=== PATIENT | female | born 1980 | race Caucasian/White ===

== ENCOUNTER 2021-03-11 16:59 | Inpatient (IN) | payer OTHER ==
[~2021-03-11] VITALS: Ht 167.6 cm; Wt 114.3 kg
[2021-03-11] MEDS ORDERED: NS 1,000 ML IV ONE ×2 (17:30→20:45)
[2021-03-11 18:23] LABS: BASO % 0.2 % (0.0-1.0); EOS % 0.1 % (0.0-3.0); HEMATOCRIT 43.3 % (36.0-47.0); HEMOGLOBIN 14.2 g/dl (12.0-15.5); LYMPH # 0.7 10^3/uL (1.5-5.0); LYMPH % 3.7 % (24.0-44.0); MEAN CORPUSCULAR HEMOGLOBIN 22.5 pg (27.0-33.0); MEAN CORPUSCULAR HGB CONC 32.8 g/dl (32.0-36.5); MEAN CORPUSCULAR VOLUME 68.6 fl (80.0-96.0); MONO # 1.9 10^3/uL (0.0-0.8); NEUTROPHILS % 84.7 % (36.0-66.0); PLATELET COUNT, AUTOMATED 503 10^3/uL (150-450); RED BLOOD COUNT 6.31 10^6/uL (4.00-5.40)
[2021-03-11 18:46] LABS: WHITE BLOOD COUNT 18.9 10^3/uL (4.0-10.0)
[2021-03-11 18:52] LABS: CALCIUM LEVEL 9.3 MG/DL (8.5-10.1); CREATININE FOR GFR 6.72 MG/DL (0.55-1.30); GLOMERULAR FILTRATION RATE 7.2 (>58)
[2021-03-11] MEDS ORDERED: KCL 10MEQ/100ML SWI (KRUN) 10 MEQ in IV 1 EA IV ONE ×5 (19:00→19:05)
[2021-03-11] MEDS ORDERED: POTASSIUM CHLORIDE 10 MEQ SR TABLET PO ONE (19:05)
--- NOTE | 2021-03-11 19:30 | REP ---
INDICATION: consern for sepsis of unknown source COMPARISON: None. TECHNIQUE: Portable AP view of the chest FINDINGS: The mediastinum and cardiac silhouette are within normal limits for portable technique. The lung ochoa are clear without acute consolidation, effusion, or pneumothorax. Skeletal structures are intact. IMPRESSION: No acute cardiopulmonary process appreciated. <Electronically signed by Alfonzo Fabian > 03/11/21 [id number]
[2021-03-11] MEDS ORDERED: PROAAER10 INH (20:23)
[2021-03-11 20:27] LABS: RSV AMPLIFICATION NEGATIVE (NEGATIVE)
--- NOTE | 2021-03-11 23:19 | REPVR ---
PROCEDURE INFORMATION: Exam: CT Head Without Contrast Exam date and time: 03/11/2021 10:41 PM Age: 40 years old Clinical indication: Injury or trauma; Fall; Blunt trauma (contusions or hematomas) TECHNIQUE: Imaging protocol: Computed tomography of the head without contrast. Radiation optimization: All CT scans at this facility use at least one of these dose optimization techniques: automated exposure control; mA and/or kV adjustment per patient size (includes targeted exams where dose is matched to clinical indication); or iterative reconstruction. COMPARISON: No relevant prior studies available. FINDINGS: Brain: There is no CT evidence for an acute large vessel territorial infarct. No acute intracranial hemorrhage is seen. No mass, mass effect, midline shift, or herniation is noted. Cerebral ventricles: Normal for age. No hydrocephalus. Paranasal sinuses: The imaged portions of the sinuses are well aerated. No air-fluid levels are noted in the sinuses. Mastoid air cells: The mastoid air cells are well aerated. Bones/joints: The skull is intact. No suspicious osteolytic or osteoblastic lesion. Soft tissues: Unremarkable. No soft tissue fluid collection. IMPRESSION: No acute intracranial abnormality. Electronically signed by: Daniel Foss On 03/11/2021 23:19:37 PM
[2021-03-11] MEDS ORDERED: ONDANSETRON 4MG/2ML VIAL IV ONE (23:40)
--- NOTE | 2021-03-12 01:40 | REPVR ---
PROCEDURE INFORMATION: Exam: CT Abdomen And Pelvis Without Contrast Exam date and time: 03/12/2021 12:59 AM Age: 40 years old Clinical indication: Sepsis, R/O pelvic infection TECHNIQUE: Imaging protocol: Computed tomography of the abdomen and pelvis without contrast. Radiation optimization: All CT scans at this facility use at least one of these dose optimization techniques: automated exposure control; mA and/or kV adjustment per patient size (includes targeted exams where dose is matched to clinical indication); or iterative reconstruction. COMPARISON: CR PORTABLE CHEST X-RAY 03/11/2021 7:00 PM FINDINGS: Lungs: The imaged portions of the lung bases are clear. The lungs were not fully imaged. Heart: No cardiomegaly. There is a trace amount of fluid in the pericardial sac. Diaphragm: Intact. Liver: Unremarkable. No liver lesion is identified. The contour of the liver is smooth. No hepatomegaly is noted. Gallbladder and bile ducts: There is a fluid fluid level in the gallbladder with higher attenuation material layering in the dependent portion of the gallbladder, which may represent biliary sludge. No gallbladder wall thickening, pericholecystic fluid, or inflammatory fat stranding is noted around the gallbladder. No dilation of the bile ducts is noted. No calcified stones are seen in the common bile duct. Pancreas: Unremarkable. No dilation of the main pancreatic duct is noted. Spleen: Unremarkable. No splenomegaly is noted. Adrenal glands: Normal. No adrenal mass is noted. Kidneys and ureters: No stones are noted in the kidneys or ureters. There is no hydronephrosis or hydroureter. The kidneys are unremarkable. No renal lesion is noted. Stomach and bowel: There is no evidence for a bowel obstruction, strangulation, perforated viscus, pneumatosis intestinalis, intussusception, or volvulus. There is submucosal fat deposition in the wall of the cecum and ascending colon, which may be the sequela of a prior colitis or may be related to obesity. No pericolonic inflammatory fat stranding is noted. There is colonic diverticulosis without evidence for diverticulitis. Appendix: Normal. No evidence for appendicitis. Intraperitoneal space: No free air. No ascites. No abscess. Retroperitoneal space: No fluid collection. No mass. Vasculature: The abdominal aorta is normal in caliber. Lymph nodes: No enlarged lymph nodes. Urinary bladder: The distended urinary bladder is normal in appearance. No stones or masses are seen in the bladder. Reproductive: There is a 2.7 cm subserosal fibroid arising from the fundus of uterus and a 5.1 cm subserosal fibroid arising from the the posterior aspect of body of the anteverted uterus. The ovaries are unremarkable. No tubo-ovarian abscess is noted. Bones/joints: There is no acute fracture or dislocation. There is an old healed fracture deformity involving the right posterior 11th rib. The ribs were not fully imaged. 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 Soft tissues: There is a large midline ventral hernia located just above the umbilicus, which contains a portion of the mid transverse colon and loops of small bowel. IMPRESSION: 1. Large midline ventral hernia located just above the umbilicus, which contains a portion of the mid transverse colon and loops of small bowel. No bowel strangulation or obstruction. 2. Submucosal fat deposition in the wall of the cecum and ascending colon, which may be the sequela of a prior colitis or may be related to obesity. 3. Colonic diverticulosis without evidence for diverticulitis. 4. Fluid fluid level in the gallbladder with higher attenuation material layering in the dependent portion of the gallbladder, which may represent biliary sludge. 5. Fibroid uterus. 6. No abscess in the abdomen or pelvis. Electronically signed by: Daniel Foss On 03/12/2021 01:39:53 AM
[2021-03-12] MEDS ORDERED: MOM 30ML SUSPENSION UDC PO PRN (01:45)
[2021-03-12] MEDS ORDERED: ACETAMINOPHEN TAB 650MG DOSE (2X325MG) PO PRN (01:45)
[2021-03-12] MEDS ORDERED: MAALOX 30 ML SUSP *UDC PO PRN (01:45)
[2021-03-12] MEDS ORDERED: NS 1,000 ML IV ONE ×2 (01:45→02:00)
--- NOTE | 2021-03-12 01:59 | HPEPDOC ---
[facility] Medical History & Physical Date of Admission Mar 12, 2021 Date of Service: Mar 12, 2021 History and Physical CHIEF COMPLAINT: Syncope HISTORY OF PRESENT ILLNESS: 39-year-old female that reports no prior medical history was brought to ER by EMS after neighbors had called one for a witnessed syncopal episode. Patient states that she was walking down the street and felt slightly lightheaded and then loss consciousness and subsequently fell onto the ground. She states she was aroused by her neighbors and does not recall tongue biting, urinary or bowel incontinence. The patient is a very poor historian and I suspect has a degree of intellectual disability. She states that she lives alone and has no prior medical history. Unfortunately, patient has not been a prior patient of [facility] and therefore no additional medical records are available. She denies any chest pain, palpitations, nausea, vomiting, diarrhea, shortness of breath, headache, blurred vision. She found to have several concerning labs. She was found to have a white count of 18.9, with 84.7% neutrophil predominance. She was also found to have severe hypokalemia with a potassium of 2.0 as well as acute renal failure with a creatinine of 6.72 and a BUN of 54. She is found to have an elevated anion gap of 22, lactic acid of 4.0. ABG showed a pH of 7.50 with a PO2 of 103, PCO2 of 26.5. CT of the head without contrast showed no hemorrhage or signs of ischemic stroke. Chest x-ray showed no acute pulmonary process. Noncontrast abdomen and pelvis showed findings consistent with a non-strangulated ventral hernia, diverticulosis, biliary sludge without additional acute findings. Dr. Shields was consulted from the ER, recommended IV hydration, and no emergent dialysis. Patient will be admitted to hospital service for workup of sepsis, acute renal failure and syncope. PAST MEDICAL HISTORY: Patient self reports is no past medical history Suspected intellectual disability PAST SURGICAL HISTORY: Patient reports none SOCIAL HISTORY: Patient denies smoking Patient denies etoh use Patient denies illicit drug use FAMILY HISTORY: Review patient, provided no pertinent family history ALLERGIES: Please see below. REVIEW OF SYSTEMS: 10 point ROS conducted, relevant findings are noted in HPI HOME MEDICATIONS: Please see below. PHYSICAL EXAMINATION: VITAL SIGNS: please see below General: NAD, comfortable HEENT: PERRLA, EOMI, sclerae clear Neck: supple, normal ROM, no JVD Respiratory: lungs CTAB, no wheeze, no rales, no crackles CVS: RRR, normal S1, S2, no murmurs Abdo: Large midline ventral hernia located above the umbilicus. Umbilicus contains mucopurulent discharge and surrounding area of skin maceration. Perineal exam: Performed with ER development architect. Patient has streams of dried blood on her legs. Perineal examination showed severe skin maceration suggestive of intertrigo/fungal infection as well as mucopurulent discharge in the skin folds between the pannus and the hip folds. Exam was limited due to patient's pain and discomfort. Extremities: no edema, pulses 2+ MSK: no joint deformities, normal ROM Neuro: no focal neuro deficits, moving all 4 extremities, CN2-12 intact. Strength 5/5 in all 4 extremities. No nystagmus. Psych: calm, cooperative, AAO x 3 LABORATORY DATA: See below. IMAGING: CT abdomen pelvis wo contrast (03/12/21): IMPRESSION: 1. Large midline ventral hernia located just above the umbilicus, which contains a portion of the mid transverse colon and loops of small bowel. No bowel strangulation or obstruction. 2. Submucosal fat deposition in the wall of the cecum and ascending colon, which may be the sequela of a prior colitis or may be related to obesity. 3. Colonic diverticulosis without evidence for diverticulitis. 4. Fluid fluid level in the gallbladder with higher attenuation material layering in the dependent portion of the gallbladder, which may represent biliary sludge. 5. Fibroid uterus. 6. No abscess in the abdomen or pelvis. CXR (03/11/21): No acute cardiopulmonary process appreciated CT head wo contrast (03/11/21): No acute intracranial abnormality. MICROBIOLOGY: Please see below. ASSESSMENT: 40-year-old female with suspected mitral disability from a neighbors after syncopal episode. On arrival to the ER, found to have sepsis, acute renal failure, severe hyperkalemia and acute renal failure. CT imaging of the head, abdomen and pelvis showed no acute abnormality. PLAN: Sepsis secondary to unknown source - WBC 18.9. Tachycardi. T 100.2. LA 4.0 - s/p 2L NS bolus. Blood cultures sent - started on empiric vancomycin and cefepime, with renal dosage - patient denies neck pain, chest pain, cough, dysuria - noted to have streaks of dried blood on legs - perineal exam showed extensive skin maceration with erythema, mucopurulent DC in folds of skin between torso and thigh, as well as satellite lesions - suspect cellulitis as possible source - CT abdo pelvis showed no pelvic abscess - patient did not spontaneously void, I ordered keys to be placed to monitor UOP. 300 cc of yann urine drained. - UA sent. Poisitive for blood, WBC, RBC, 3+ protein. Negative for LE and nitrite - urine culture sent. Acute renal failure - patient denies reduced PO intake - Cr 6.57, in ER. - was given endorsement that patient has been making urine - per RN, no UOP has been made - ordered keys catheter to be placed - ordered renal US - check urine lytes - check CPK - D/w Dr. Shields. C/w IVF. No need for urgent dialysis. Consult placed. Cellulitis with intertrigo - started empiric vancomycin and cefepime - topical ketoconazole cream - diflucan once time dose 150 mg PO Questionable vaginal bleeding - patient reported possible intermenstrual bleeding - will order complete pelvic US Syncope - check orthosats - admit to PCU, 48 hr telemetry - check carotid US Obesity - BMI 33.4. DVT: SCDs. TEDs. Heparin. CODE STATUS: full code Dispo: admit to PCU. Vital Signs Vital Signs Date Time Temp Pulse Resp B/P (MAP) Pulse Ox O2 Delivery O2 Flow Rate FiO2 03/12/21 01:30 91 16 152/90 (110) 100 Room Air 03/11/21 17:05 100.2 Laboratory Data Labs 24H Laboratory Tests 2 03/11/21 18:02: Immature Granulocyte % (Auto) 1.3, Neutrophils (%) (Auto) 84.7H, Lymphocytes (%) (Auto) 3.7L, Monocytes (%) (Auto) 10.0H, Eosinophils (%) (Auto) 0.1, Basophils (%) (Auto) 0.2, Neutrophils # (Auto) 16.0H, Lymphocytes # (Auto) 0.7L, Monocytes # (Auto) 1.9H, Eosinophils # (Auto) 0.0, Basophils # (Auto) 0.0, Nucleated Red Blood Cells % (auto) 0.1H, Anion Gap 22H, Glomerular Filtration Rate 7.2L, Calcium Level 9.3 03/11/21 19:07: Lactic Acid Level 4.0*H, Coronavirus (COVID-19)(PCR) NEGATIVE, Influenza Type A (RT-PCR) NEGATIVE, Influenza Type B (RT-PCR) NEGATIVE, Respiratory Syncytial Virus (PCR) NEGATIVE 03/11/21 21:13: POC pH (Misc Panel) 7.503H, POC Base Excess (Misc Panel) -2.0, POC Saturated Percent O2 (Misc) 99H, POC pO2 (Misc Panel) 103.0, POC pCO2 (Misc Panel) 26.5L, POC HCO3 (Misc Panel) 20.8L, POC Total CO2 (Misc Panel) 22.0L 03/11/21 23:10: Lactic Acid Followup at 4 Hours 3.0*H CBC/BMP Laboratory Tests 03/11/21 18:02 Microbiology Microbiology 03/11/21 Blood Culture, Received Pending Home Medications Scheduled PRN Albuterol Sulfate (Proair Hfa) 8.5 Gm Hfa.aer.ad, 2 PUFF INH Q4H PRN for SOB/WHEEZING Allergies Coded Allergies: No Known Allergies (Unverified , 03/11/21) A-FIB/CHADSVASC A-FIB History Current/History of A-Fib/PAF?: No Current PO Anticoag Therapy: No BERT GRANT MD Mar 12, 2021 01:59
[2021-03-12 02:12] LABS: BLOOD UREA NITROGEN 55 MG/DL (7-18); CALCIUM LEVEL 8.1 MG/DL (8.5-10.1); CARBON DIOXIDE LEVEL 21 MEQ/L (21-32); CHLORIDE LEVEL 100 MEQ/L (98-107); CREATININE FOR GFR 5.76 MG/DL (0.55-1.30); GLOMERULAR FILTRATION RATE 8.6 (>58); GLUCOSE, FASTING 147 MG/DL (70-100); POTASSIUM SERUM 2.1 MEQ/L (3.5-5.1); SODIUM LEVEL 137 MEQ/L (136-145)
[2021-03-12] MEDS ORDERED: POTASSIUM CHLORIDE 10 MEQ SR TABLET PO ONE ×4 (02:25→22:35)
[2021-03-12] MEDS ORDERED: VANCOMYCIN INTERMITTENT/PULSE DOSING BY CLINICAL PHARMACIST PER DOSING PROTOCOL XX SCH (02:35)
[2021-03-12 02:52] LABS: HCG, SERUM QUALITATIVE NEGATIVE (NEGATIVE)
[2021-03-12] MEDS ORDERED: CEFEPIME HCL 1 GM in D5W MINI-BAG PLUS 50 ML IV SCH ×2 (03:00→04:55)
[2021-03-12 03:12] LABS: CPK CREATINE PHOSPHOKINASE 276 U/L (26-192)
[2021-03-12 04:02] VITALS: BP 138/94
[2021-03-12] MEDS: KCL 10MEQ/100ML SWI (KRUN) 10 MEQ in IV 1 EA IV SCH ×12 (04:07→23:53)
[2021-03-12 05:02] LABS: SODIUM,RANDOM URINE < 10 MEQ/L
[2021-03-12] MEDS ORDERED: FLUCONAZOLE 100 MG TAB PO ONE (05:10)
[2021-03-12] MEDS ORDERED: ALBUTEROL 90 MCG/ACT 8GM HFA INHALER INH PRN (05:15)
[2021-03-12] MEDS ORDERED: FLUCONAZOLE 50MG TABLET PO ONE (05:20)
[2021-03-12] MEDS: HEPARIN SOD (PORCINE) 5000UNITS/ML 1ML VIAL/SYRINGE SC SCH ×3 (06:14→21:16)
[2021-03-12] MEDS: VANCOMYCIN HCL 1,000 MG, VIAL MATE ADAPTER 1 EACH in NS 250 ML IV SCH ×2 (06:14→08:15)
[2021-03-12 06:30] LABS: BASO % 0.1 % (0.0-1.0); EOS % 0.2 % (0.0-3.0); HEMATOCRIT 39.9 % (36.0-47.0); HEMOGLOBIN 12.7 g/dl (12.0-15.5); LYMPH # 0.8 10^3/uL (1.5-5.0); LYMPH % 5.4 % (24.0-44.0); MEAN CORPUSCULAR HEMOGLOBIN 22.6 pg (27.0-33.0); MEAN CORPUSCULAR HGB CONC 31.8 g/dl (32.0-36.5); MEAN CORPUSCULAR VOLUME 71.1 fl (80.0-96.0); MONO # 1.6 10^3/uL (0.0-0.8); MONO % 10.8 % (2.0-8.0); NEUTROPHILS # 12.5 10^3/uL (1.5-8.5); RED BLOOD COUNT 5.61 10^6/uL (4.00-5.40)
[2021-03-12] MEDS: TRIPLE PASTE 2OZ OINTMENT TOP SCH ×2 (06:42→20:26)
[2021-03-12] MEDS: KETOCONAZOLE 2% CREAM TOP SCH ×2 (06:49→20:26)
[2021-03-12 06:50] LABS: PLATELET COUNT, AUTOMATED 307 10^3/uL (150-450); WHITE BLOOD COUNT 15.3 10^3/uL (4.0-10.0)
[2021-03-12 07:01] LABS: ALBUMIN 3.2 GM/DL (3.2-5.2); BILIRUBIN,TOTAL 1.4 MG/DL (0.2-1.0); CALCIUM LEVEL 8.1 MG/DL (8.5-10.1); CREATININE FOR GFR 5.04 MG/DL (0.55-1.30); GLOMERULAR FILTRATION RATE 10.1 (>58); POTASSIUM SERUM 2.2 MEQ/L (3.5-5.1); TOTAL PROTEIN 7.1 GM/DL (6.4-8.2)
--- NOTE | 2021-03-12 07:57 | REPVR ---
PROCEDURE INFORMATION: Exam: US Duplex Bilateral Extracranial Arteries Exam date and time: 03/12/2021 6:02 AM Age: 40 years old Clinical indication: Syncope and collapse TECHNIQUE: Imaging protocol: Real-time Duplex ultrasound scan of the bilateral carotid and vertebral arteries combining malloy scale, color Doppler and spectral waveform analysis. Bilateral exam. COMPARISON: None provided. FINDINGS: There is mild plaque involving the carotid bifurcations bilaterally. Vertebral artery flow is antegrade bilaterally. The following peak velocities were obtained (Systolic (Diastolic) in cm/sec) Right CCA: 86 Right ICA: Proximal 72 (18), Mid 55 (18), Distal 49 (18) Right ECA: 104 Left CCA: 110 Left ICA: Proximal 53 (16), Mid 84 (33), Distal 113 (51) Left ECA: 72 Peak ICA/CCA ratios: Right: 0.83 Left: 1.03 IMPRESSION: 1. There is mild plaque with Doppler evidence of less than 50% carotid artery stenosis on the right. This is on the basis of peak internal carotid artery systolic velocity and peak ICA/CCA systolic velocity ratio. 2. There is mild plaque with Doppler evidence of less than 50% carotid artery stenosis on the left. This is on the basis of peak internal carotid artery systolic velocity and peak ICA/CCA systolic velocity ratio. 3. Antegrade vertebral artery flow bilaterally. REFERENCES: SRU CRITERIA. The degree of internal carotid artery stenosis is based on criteria defined by the Society of Radiologists in Ultrasound (SRU). Normal is no stenosis. Mild is less than 50% stenosis. Moderate is 50-69% stenosis. Severe is greater than 69% stenosis to near occlusion. Near occlusion is a markedly narrowed lumen. Total occlusion is no detectable patent lumen. Electronically signed by: Jorge Padilla On 03/12/2021 07:56:50 AM
--- NOTE | 2021-03-12 07:59 | REPVR ---
PROCEDURE INFORMATION: Exam: US Retroperitoneal Limited, Kidneys Exam date and time: 03/12/2021 6:02 AM Age: 40 years old Clinical indication: Abnormal findings; Abnormal lab test; Abnormal kidney function lab tests; Additional info: Acute renal failure TECHNIQUE: Imaging protocol: Real-time ultrasound of the retroperitoneum with image documentation. Examination was focused on the kidneys. COMPARISON: CT ABD PELVIS W/O CONTRAST 03/12/2021 12:59 AM FINDINGS: Right kidney: The right kidney measures 13.1 x 5.8 x 5.7 cm. It appears echogenic and is without hydronephrosis or demonstrated stone, cyst or mass. Left kidney: The left kidney measures 12.7 x 5.6 x 6.5 cm. It appears echogenic and is without hydronephrosis or demonstrated stone, cyst or mass. IMPRESSION: Echogenic kidneys, suggesting chronic medical renal disease, without other demonstrated abnormality. Electronically signed by: Jorge Padilla On 03/12/2021 07:58:53 AM
[2021-03-12 08:00] VITALS: BP 140/78
--- NOTE | 2021-03-12 08:04 | REPVR ---
PROCEDURE INFORMATION: Exam: US Pelvis Complete, Transabdominal and US Pelvis, Transvaginal Exam date and time: 03/12/2021 6:02 AM Age: 40 years old Clinical indication: Menstruation abnormalities; Irregular menstruation; Additional info: Intermenstrual bleeding TECHNIQUE: Imaging protocol: Real-time transabdominal and transvaginal pelvic ultrasound (complete) with image documentation. Transvaginal imaging was used for better evaluation of the endometrium, adnexa, and/or cervix. COMPARISON: CT ABD PELVIS W/O CONTRAST 03/12/2021 12:59 AM FINDINGS: Uterus/cervix: The uterus measures 9.3 x 4.6 x 5.5 cm transabdominally and 5.2 x 4.6 x 4.8 cm transvaginally. Along its right aspect is a subserosal fibroid measuring 5.0 x 4.5 x 4.2 cm. The endometrium measures 1.2-1.4 cm in thickness transvaginally. Within the endometrium is an echogenic lesion measuring 1.4 x 1.4 x 1.2 cm with internal vascularity, likely a polyp. Right adnexa: The right ovary measures 3.6 x 2.9 x 2.0 cm as seen transvaginally only, and appears unremarkable. There is internal flow with resistive index 0.63. Left adnexa: The left ovary measures 2.3 x 1.4 x 1.9 cm as seen transvaginally only, and appears unremarkable. There is internal flow with resistive index 0.41. Intraperitoneal space: No demonstrated free fluid. Urinary bladder: Unremarkable as visualized. IMPRESSION: 1. 1.4 cm vascular lesion along the endometrium, likely polyp. Recommend further gynecologic evaluation. 2. 5.0 cm subserosal uterine fibroid. 3. Unremarkable ovaries. Electronically signed by: Jorge Padilla On 03/12/2021 08:04:05 AM
[2021-03-12] MEDS: DOCUSATE SODIUM 100MG CAPSULE PO SCH ×2 (08:15→20:25)
[2021-03-12] MEDS ORDERED: NS 1,000 ML IV SCH (08:55)
[2021-03-12] MEDS: POTASSIUM CHLORIDE 10 MEQ SR TABLET PO SCH ×2 (09:22→20:25)
[2021-03-12 10:05] LABS: VENOUS BASE EXCESS -4.8 (-2.0-2.0); VENOUS HCO3 14.8 MEQ/L (23.0-27.0); VENOUS O2 SATURATION 99.4 % (60.0-80.0); VENOUS PARTIAL PRESSURE CO2 16.9 mmHg (38.0-50.0); VENOUS PARTIAL PRESSURE O2 200.6 mmHg (30.0-50.0); VENOUS PH 7.561 UNITS (7.330-7.430); VENOUS STANDARD HCO3 20.6 MEQ/L; VENOUS TOTAL CO2 15.3 MEQ/L (24.0-28.0)
[2021-03-12] MEDS ORDERED: PIPERACILLIN/TAZOBACTAM SOD 3.375 GM in D5W MINI-BAG PLUS 50 ML IV SCH (10:10)
--- NOTE | 2021-03-12 10:11 | IPNPDOC ---
Text Note Date of Service The patient was seen on 03/12/21. NOTE Subjective: Patient is a 39 year old female with no significant PMHx who presented to the ER on 03/11 via EMS after her neighbor's witnessed a syncopal episode. . She reported that she was walking down the street and felt lightheaded and lost consciousness. There is no urinary or bowel incontinence. No seizure-like activity. Patient was brought to the emergency room and was admitted to the hospitalist service for further evaluation and treatment. Upon arrival to emergency room, patient had significant acute kidney injury, metabolic acidosis, lactic acidosis and hypokalemia. Nephrology was called on consultation. Patient was seen and examined at the bedside. Currently patient reports that she feels a little better. She denies any CP or palpitations. Patient reported that she has experienced some nausea, vomiting, and a mild cough. She denies any abdominal pain, diarrhea, or urinary discomfort. Objective: Vitals (See below) General: Lying in bed, appears comfortable, AAOx3 HEENT: NC, AT CVS: +S1S2 Lungs: Fair air entry b/l, no appreciable wheezing, rales or rhonchi Abdomen: Soft, ND, NT Extremities: No evidence of edema, - Calf tenderness Imaging: Portable CXR 03/11: No acute cardiopulmonary process appreciated. Head CT 03/11: No acute intracranial abnormality. Abdomen / Pelvis CT 03/11: 1. Large midline ventral hernia located just above the umbilicus, which contains a portion of the mid transverse colon and loops of small bowel. No bowel strangulation or obstruction. 2. Submucosal fat deposition in the wall of the cecum and ascending colon, which may be the sequela of a prior colitis or may be related to obesity. 3. Colonic diverticulosis without evidence for diverticulitis. 4. Fluid fluid level in the gallbladder with higher attenuation material layering in the dependent portion of the gallbladder, which may represent biliary sludge. 5. Fibroid uterus. 6. No abscess in the abdomen or pelvis. Renal US 03/12 Echogenic kidneys, suggesting chronic medical renal disease, without other demonstrated abnormality. Vascular US 03/12: 1. There is mild plaque with Doppler evidence of less than 50% carotid artery stenosis on the right. This is on the basis of peak internal carotid artery systolic velocity and peak ICA/CCA systolic velocity ratio. 2. There is mild plaque with Doppler evidence of less than 50% carotid artery stenosis on the left. This is on the basis of peak internal carotid artery systolic velocity and peak ICA/CCA systolic velocity ratio. 3. Antegrade vertebral artery flow bilaterally. Pelvic US 03/12: 1. 1.4 cm vascular lesion along the endometrium, likely polyp. Recommend further gynecologic evaluation. 2. 5.0 cm subserosal uterine fibroid. 3. Unremarkable ovaries. Assessment and plan: Acute renal failure - No baseline Cr to compare against - Cr has been improving - FENA of 0.1% - Imaging noted above - Barton catheter has been placed - c/w IV fluid hydration - Nephrology has been consulted; appreciate their input Hypokalemia - Will continue to supplement Metabolic acidosis - likely 2/2 HAGMA and NAGMA - possibly 2/2 Lactic acidosis / Acute renal failure - Delta / Delta of ~0.8 - Lactic acid has had some improvement; will continue to trend - c/w IV fluid hydration - Nephrology on consultation Hyperglycemia - Will check A1c s/p Thrombocytosis - likely 2/2 reactive etiology - Will check Iron panel Suspected infection - etiology unclear, suspicion for SSTI - Review of systems negative for any source of infection - Hemodynamically stable and afebrile - SSTI infection around perineum / flank - MRSA positive - Blood cultures 03/11: Pending - UA is without LE / Nitrates; Urine cultures 03/12: Pending - s/p Fluconazole 150mg PO x 1 dose - Will check procalcitonin - c/w Topical ketoconazole cream - c/w Vancomycin and Cefepime (Day #1); will change Cefepime to Zosyn (re: Anaerobic coverage) Cellulitis with intertrigo - See above Questionable vaginal bleeding - possibly 2/2 vascular lesion along endometrium / subserosal uterine fibroid - Pelvic US noted above - Will consult COMBINE MECHANIC Syncope - possibly 2/2 dehydration / hypovolemia - BP have improved - Tachycardia has improved - Will check orthostatic vital signs - ECHO pending - c/w Telemetry Obesity - BMI 36.8 - Complicating medical care DVT prophylaxis - c/w TEDs/Sequentials + Heparin SQ Disposition: - Awaiting clinical improvement VS,Fishbone, I+O VS, Fishbone, I+O Laboratory Tests 03/11/21 18:02 03/11/21 23:10 03/12/21 06:17 Vital Signs Date Time Temp Pulse Resp B/P (MAP) Pulse Ox O2 Delivery O2 Flow Rate FiO2 03/12/21 08:00 97.7 90 20 140/78 (98) 99 Room Air I&O- Last 24 Hours up to 6 AM 03/12/21 06:00 Intake Total 3800 ml Output Total 200 ml Balance 3600 ml EUGENE ZAMBRANO MD Mar 12, 2021 10:11
[2021-03-12 10:27] LABS: OSMOLALITY SERUM 298 MOSM/KG (275-295)
[2021-03-12 10:33] LABS: ACETONE/KETONE 7.06 MG/DL (<2.81); ETHYL ALCOHOL (ETHANOL) < 0.003 % (0.000-0.010)
[2021-03-12] MEDS ORDERED: LORazepam 2 MG TAB PO PRN (11:15)
[2021-03-12 11:20] LABS: AMPHETAMINES LEVEL URINE NEGATIVE (NEGATIVE); BARBITURATES URINE NEGATIVE (NEGATIVE); BENZODIAZEPINES URINE NEGATIVE (NEGATIVE); CANNABINOIDS URINE NEGATIVE (NEGATIVE); COCAINE METABOLITE URINE NEGATIVE (NEGATIVE); METHADONE URINE NEGATIVE (NEGATIVE); OPIATES URINE NEGATIVE (NEGATIVE); PHENCYCLIDINE URINE NEGATIVE (NEGATIVE)
[2021-03-12 11:23] LABS: HEMOGLOBIN A1c 5.3 %
[2021-03-12] MEDS: PIPERACILLIN/TAZOBACTAM SOD 2.25 GM in D5W MINI-BAG PLUS 50 ML IV SCH ×2 (11:37→18:12)
[2021-03-12] MEDS: THIAMINE 100 MG TAB PO SCH ×2 (11:37→20:25)
[2021-03-12] MEDS: FOLIC ACID 1 MG TAB PO SCH (11:37)
[2021-03-12] MEDS: KCL 40MEQ IN D5/0.45NS 1000ML 1,000 ML IV SCH (11:38)
[2021-03-12] MEDS: MULTIVITAMINS/MINERALS THERAP 1 TAB PO SCH (11:47)
[2021-03-12 12:00] VITALS: BP_SYST 116; BP_SYST 129; BP_SYST 139; BP_DIAS 65; BP_DIAS 80; BP_DIAS 81
[2021-03-12 12:51] LABS: ALBUMIN 2.9 GM/DL (3.2-5.2); BILIRUBIN,TOTAL 1.1 MG/DL (0.2-1.0); CREATININE FOR GFR 3.98 MG/DL (0.55-1.30); GLOMERULAR FILTRATION RATE 13.2 (>58); POTASSIUM SERUM 2.7 MEQ/L (3.5-5.1)
--- NOTE | 2021-03-12 13:21 | CR ---
NEPHROLOGY CONSULTATION DATE: 03/12/2021 REQUESTING PHYSICIAN: Royal Dooley M.D. REASON FOR CONSULTATION: Management of acute renal failure and multiple electrolyte abnormalities. CHIEF COMPLAINT: Patient was brought in to the emergency room after a syncope. HISTORY OF PRESENT ILLNESS: Kenisha Gaspar is a 40-year-old female with no significant past medical history. She possibly has an intellectual disability. She lives alone and she told me that she is [employer] ([employer]). Probably, she needs help with her finances. She was brought to the emergency room yesterday after witnessed syncope and as reported by the patient, she was lightheaded. She was nauseated and had some vomiting. She denies doing any drugs or alcohol. When patient arrived in the emergency room, patient had low grade fever with oral temperature of 102 degrees Fahrenheit. She had tachycardia with pulse 111 and patient had leukocytosis with a WBC of 18.9. She was found to be in renal failure with a creatinine of 6.7 and she had multiple electrolyte abnormalities, including hyponatremia, hypokalemia, hypochloremic metabolic acidosis. She had lactic acidosis with a lactate of 4 on arrival. Case was discussed with myself, the emergency room (ER) physician and with the admitting physician, Dr. Royal Dooley. Decision was made to treat the patient for possible sepsis, give intravenous (IV) fluid hydration, empiric IV antibiotics, and there was no urgent indication for dialysis. Patient was clinically dehydrated. I saw and evaluated the patient today morning at the bedside. She still persistently has hypokalemia. There is slight improvement in the renal function. I was told by the nursing staff that after placement of Barton catheter, she had made about 150 mL of urine. Patient was able to answer few questions. She has no signs of symptoms of uremia at this time. PAST MEDICAL HISTORY: No known past medical history. She does have intellectual disability and slow to answer questions. PAST SURGICAL HISTORY: No known past surgical history. ALLERGIES: No known allergies. FAMILY HISTORY: Family history is not known. SOCIAL HISTORY: Patient reports that she lives alone. She denies any smoking or illicit drug abuse. She denies regular alcohol use. She says she rarely drinks alcohol. REVIEW OF SYSTEMS: CONSTITUTIONAL: The patient denies any fevers or chills. She did report syncope. EYES: She denies any blurry vision or double vision. EARS, NOSE AND THROAT (ENT): Denies any dysphagia or odynophagia. CARDIOVASCULAR: Denies any chest pain or palpitations. RESPIRATORY: She does report that she was having coughing for the last few days. GASTROINTESTINAL: She did report some nausea and vomiting. GENITOURINARY: Denies any dysuria or hematuria. MUSCULOSKELETAL: She denies any muscle aches or pains. SKIN: Denies any rashes or ulcers. HEMATOLOGICAL/ONCOLOGICAL: She denies any easy bleeding or bruising. CENTRAL NERVOUS SYSTEM (COMPUTER TECHNOLOGY INSTRUCTOR): She does report syncope. All other review of systems is negative. PHYSICAL EXAMINATION: GENERAL: Patient is awake, alert, oriented times three, laying in bed, comfortable, no distress. VITAL SIGNS: Temperature 97.7 degrees Fahrenheit, blood pressure 140/78, pulse 90, respiratory rate 20, saturating 99% on room air. INTAKE AND OUTPUT: Urine output recorded only 150 mL since overnight. HEAD AND NECK EXAM: Extraocular muscles intact. Pupils equally round and reactive to light. Mucous membranes are moist. Neck is supple. There is no jugular venous distention (JVD). CARDIOVASCULAR: S1, S2. Regular rate. Trace edema of the ankles is noted. RESPIRATORY: Chest is clear to auscultation bilaterally. Bilateral equal air entry. No rales or rhonchi. ABDOMEN: Obese. She has a large supraumbilical hernia, which is nontender. Bowel sounds are positive. GENITOURINARY: She has an indwelling Barton catheter. Urine in the bag is very dark colored. MUSCULOSKELETAL: No clubbing or cyanosis. CENTRAL NERVOUS SYSTEM (COMPUTER TECHNOLOGY INSTRUCTOR): No focal deficit. Power is 5/5 in all extremities. Patient has intellectual disability. LABORATORY REVIEW: CBC on arrival showed WBC 18.9, hemoglobin 14.2, platelets 503. Urinalysis on arrival showed it was cloudy with 3+ protein, trace ketones, 3+ blood, 1+ bilirubin. Random creatinine was 559. Random sodium was less than 10. Repeat venous blood gas (VBG) pH today morning is 7.56. BMP on arrival showed sodium 134, potassium 2, chloride 95, bicarbonate 17, anion gap 22, BUN 54, creatinine 6.7, glucose 210, lactic acid 4, calcium 8.1, magnesium 2. Hemoglobin A1C 5.3. CPK 276. Beta HCG is negative. Urine toxicology is negative. Ethyl alcohol is less than 0.003. Beta-hydroxybutyrate is 7.06. MICROBIOLOGY: Blood and urine cultures are pending. IMAGING: Patient had multiple imaging done, including pelvis and vascular ultrasounds, CT scan abdomen and pelvis, CT scan of the head. Pertinent findings of the CT scan of the abdomen and pelvis showed that there was a large midline ventral hernia located just above the umbilicus, which contains a portion of the mid-transverse colon and loops of small bowel. No bowel strangulation or obstruction is noted. CURRENT INPATIENT MEDICATIONS: Patient's medications were all reviewed by myself. She has received multiple boluses of IV normal saline, up to 4 liters so far. She was getting normal saline at 100 mL/h. I have changed the IV fluids to potassium chloride (KCl) 40 mEq and D5 half-normal saline at 100 mL/h. Patient is getting multiple runs of IV KCl. She was getting IV cefepime, which has been stopped now and she has been switched to Zosyn 2.25 grams every 8 hours. She also got two doses of IV vancomycin. I am going to stop it for now, since patient is in renal failure. She is on: - Tylenol as needed - albuterol as needed - Colace 100 mg by mouth twice a day - Diflucan 150 mg by mouth times one dose - folic acid 1 mg by mouth daily - multivitamin - Zofran as needed - She has received multiple doses of oral potassium as well - She has been started on thiamine 100 mg by mouth twice a day ASSESSMENT AND PLAN: 1. Acute oliguric renal failure. Most likely secondary to acute tubular necrosis (ATN). Patient has very dark urine. Patient has metabolic acidosis and hypokalemia. However, volume status is being optimized with IV fluid. There is no urgent need of hemodialysis at this time. I would continue the empiric antibiotics and IV fluid hydration at this time and wait for renal recovery. Patient's renal function will be checked on a daily basis for any need of any stage of renal replacement therapy. 2. Sepsis with unknown source. Patient came in with tachycardia, leukocytosis, lactic acidosis, ketoacidosis and a temperature of 100.2 degrees Fahrenheit. She was initially on cefepime. Currently she has been switched to Zosyn and vancomycin. Although I see that methicillin-resistant Staphylococcus aureus (MRSA) is positive, I am holding the vancomycin for now because whatever dose she has received is going to stay in her system because of renal failure. Source of infection is possible in the skin or maybe in the perineal area. Management is as per medical team. Continue IV fluid hydration. Change of IV fluid has been done, as mentioned below. 3. High anion gap metabolic acidosis with lactic acidosis, ketoacidosis and respiratory alkalosis. Patient is being empirically treated for sepsis. Because of ketoacidosis, I have changed the IV fluids to D5 half-normal saline with potassium chloride (KCl) as well, because she has hypokalemia. No need of bicarbonate administration at this time, since her venous blood gas (VBG) pH is 7.5. Patient has respiratory alkalosis as well. 4. Hypokalemia. Patient has whole body potassium depletion. Potassium is still low. It has been added to IV fluids and she is getting oral and IV potassium as well. 5. Possible risk of toxin abuse. Patient's urine toxicology is negative. Ethyl alcohol level is less than 0.003. Calculated osmolar gap is within the normal range. Since patient has combination of lactic acidosis and ketoacidosis, she is receiving dextrose containing fluid, thiamine and folic acid, because alcohol can sometimes cause a combination of lactic acidosis and ketoacidosis in an acute alcohol toxicity. Alcohol level might be low or negative. Thank you for involving me in the care of this patient. I shall be happy to follow the patient along with you tomorrow morning. [facility]
[2021-03-12 13:53] LABS: FERRITIN 47 NG/ML (8-252); FOLATE 17.6 NG/ML (>5.4); IRON (FE) 35 UG/DL (50-170); PERCENT SATURATION 11.1 % (13.2-45.0); TOTAL IRON BINDING CAPACITY 315 UG/DL (250-450); VITAMIN B12 LEVEL 387 PG/ML (247-911)
[2021-03-12 13:53] LABS: TOTAL PROTEIN,RANDOM URINE 206.5 MG/DL (0.0-12.0)
[2021-03-12 16:00] VITALS: BP 145/90
[2021-03-12 17:05] LABS: CALCIUM LEVEL 7.9 MG/DL (8.5-10.1); CREATININE FOR GFR 3.87 MG/DL (0.55-1.30); GLOMERULAR FILTRATION RATE 13.6 (>58); POTASSIUM SERUM 2.6 MEQ/L (3.5-5.1)
[2021-03-12 20:00] VITALS: BP_SYST 117; BP_SYST 138; BP_SYST 149; BP_SYST 150; BP_DIAS 71; BP_DIAS 79; BP_DIAS 84; BP_DIAS 88
[2021-03-12 23:58] VITALS: BP 139/83
[2021-03-13] VITALS (9 sets, daily range): BP systolic 96–144; BP diastolic 51–94
[2021-03-13] MEDS: KCL 10MEQ/100ML SWI (KRUN) 10 MEQ in IV 1 EA IV SCH (01:22)
[2021-03-13] MEDS: PIPERACILLIN/TAZOBACTAM SOD 2.25 GM in D5W MINI-BAG PLUS 50 ML IV SCH ×2 (02:53→10:14)
[2021-03-13 05:11] LABS: BASO % 0.3 % (0.0-1.0); EOS # 0.2 10^3/uL (0.0-0.5); EOS % 2.2 % (0.0-3.0); HEMATOCRIT 33.7 % (36.0-47.0); LYMPH # 0.8 10^3/uL (1.5-5.0); LYMPH % 8.3 % (24.0-44.0); MEAN CORPUSCULAR HEMOGLOBIN 22.8 pg (27.0-33.0); MEAN CORPUSCULAR HGB CONC 31.5 g/dl (32.0-36.5); MEAN CORPUSCULAR VOLUME 72.6 fl (80.0-96.0); MONO # 1.1 10^3/uL (0.0-0.8); MONO % 12.3 % (2.0-8.0); NEUTROPHILS # 6.8 10^3/uL (1.5-8.5); PLATELET COUNT, AUTOMATED 262 10^3/uL (150-450); RED BLOOD COUNT 4.64 10^6/uL (4.00-5.40); WHITE BLOOD COUNT 9.3 10^3/uL (4.0-10.0)
[2021-03-13 05:13] LABS: HEMOGLOBIN 10.6 g/dl (12.0-15.5)
[2021-03-13] MEDS: KCL 40MEQ IN D5/0.45NS 1000ML 1,000 ML IV SCH (05:26)
[2021-03-13] MEDS: HEPARIN SOD (PORCINE) 5000UNITS/ML 1ML VIAL/SYRINGE SC SCH ×3 (05:28→22:00)
[2021-03-13 05:35] LABS: ALBUMIN 2.6 GM/DL (3.2-5.2); BILIRUBIN,TOTAL 1.1 MG/DL (0.2-1.0); CALCIUM LEVEL 7.9 MG/DL (8.5-10.1); CREATININE FOR GFR 2.76 MG/DL (0.55-1.30); GLOMERULAR FILTRATION RATE 20.2 (>58); POTASSIUM SERUM 3.2 MEQ/L (3.5-5.1); TOTAL PROTEIN 5.4 GM/DL (6.4-8.2)
[2021-03-13 05:36] LABS: ACETONE/KETONE 1.45 MG/DL (<2.81); MAGNESIUM LEVEL 1.8 MG/DL (1.8-2.4)
[2021-03-13] MEDS: MULTIVITAMINS/MINERALS THERAP 1 TAB PO SCH (09:40)
[2021-03-13] MEDS: DOCUSATE SODIUM 100MG CAPSULE PO SCH ×2 (09:40→22:19)
[2021-03-13] MEDS: THIAMINE 100 MG TAB PO SCH ×2 (09:40→22:20)
[2021-03-13] MEDS: FOLIC ACID 1 MG TAB PO SCH (09:40)
[2021-03-13] MEDS: TRIPLE PASTE 2OZ OINTMENT TOP SCH ×2 (09:40→21:00)
[2021-03-13] MEDS: POTASSIUM CHLORIDE 10 MEQ SR TABLET PO SCH ×2 (09:40→22:20)
[2021-03-13 09:53] LABS: CORTISOL AM 29.1 UG/DL (4.3-22.4)
[2021-03-13 10:02] LABS: VENOUS BASE EXCESS -8.8 (-2.0-2.0); VENOUS HCO3 15.6 MEQ/L (23.0-27.0); VENOUS O2 SATURATION 96.7 % (60.0-80.0); VENOUS PARTIAL PRESSURE CO2 29.2 mmHg (38.0-50.0); VENOUS PARTIAL PRESSURE O2 88.6 mmHg (30.0-50.0); VENOUS PH 7.346 UNITS (7.330-7.430); VENOUS STANDARD HCO3 17.4 MEQ/L; VENOUS TOTAL CO2 16.5 MEQ/L (24.0-28.0)
[2021-03-13] MEDS ORDERED: NS 500 ML IV ONE (11:00)
--- NOTE | 2021-03-13 12:20 | IPN ---
NEPHROLOGY PROGRESS NOTE DATE: 03/13/2021 SUBJECTIVE: The patient was seen at the bedside today morning. She reports that she is feeling better today. She was sitting up in the sofa. Her urine output is gradually improving. She made slightly more than 500 mL of urine. Creatinine is improving, however the patient still has lactic acidosis. Ketoacidosis is improved. She still has electrolyte abnormalities and acid based abnormalities at this time. OBJECTIVE: VITAL SIGNS: Temperature is 98 degrees Fahrenheit, blood pressure is 131/83, however her standing pressure was 96/51 today morning which shows she still has orthostatic hypotension. Respiratory rate of 18, saturating 98% on room air. INTAKE AND OUTPUT: Urine output recorded as 550 mL yesterday, 350 mL so far today since overnight. Weight in the bed scale is 107.7 kg. PHYSICAL EXAMINATION: GENERAL APPEARANCE: The patient is awake, alert, oriented x3, sitting up in the sofa in no apparent distress. HEAD AND NECK: Extraocular muscles intact. Pupils are equally round and reactive to light. Mucous membranes are moist. Neck is supple. There is no jugular venous distention. CARDIOVASCULAR: S1, S2, regular rate. EXTREMITIES: No edema of the bilateral lower extremities. RESPIRATORY: Chest is clear to auscultation bilaterally. Bilaterally currently no rales or rhonchi. ABDOMEN: Soft, large ventral abdominal hernia above the umbilicus is noted. GENITOURINARY: She has an indwelling Barton catheter. MUSCULOSKELETAL: No clubbing, no cyanosis. Pulses are 2+. 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 Power is 5/5 in all extremities. LAB REVIEW: CBC showed a WBC count of 9.3 which is significantly better. It was 15.3 yesterday. Hemoglobin is 10.6, platelet count 262. Urine protein creatinine ratio is less than a gram with a protein of 206, creatinine of 316. VBG pH today morning is 7.34. BMP done today morning showed sodium of 141, potassium 3.2, chloride 113, bicarbonate is 16, anion gap is 12. However albumin corrected anion gap will be more than 14. BUN 44, creatinine is 2.7; it was 3.8 yesterday. Lactic acid level is 3.7 today morning. Toxicology Beta hydroxybutyrate is 1.45 which is better than yesterday. CURRENT INPATIENT MEDICATIONS: The patient's medications were all reviewed by myself. She has finished half normal saline with KCL 40 mEq. That fluid is being stopped and because of elevated lactate level, she was given a normal saline bolus 500 mL by myself. She continues to be on IV Zosyn. I am starting the patient on quarter normal saline with potassium at 120 mL an hour. I have started this patient on Bicitra 30 mL p.o. twice daily. She continues to be on potassium chloride 40 mEq p.o. twice daily. ASSESSMENT AND PLAN: 1. Acute renal failure - The patient was oliguric yesterday, however she is becoming non oliguric right now. Renal function is gradually improving. Continue IV fluid hydration. 2. Sepsis - The patient still has orthostatic hypotension. Cultures are pending. She continues to be on IV Zosyn. Vancomycin was stopped because of acute renal failure. 3. High anion gap metabolic acidosis with lactic acidosis ketoacidosis has resolved now. Another dose of 500 mL normal saline bolus is being given. IV fluids have been changed because she was getting hyperchloremic now. She is going to get quarter normal saline with potassium now. 4. Hypokalemia - The patient still has persistent hypokalemia despite aggressive potassium repletion. She continues to be on oral potassium twice daily and potassium has been added to IV fluids as well.
--- NOTE | 2021-03-13 12:49 | REP ---
INDICATION: elevated white count R/o pneumonia. COMPARISON: None. TECHNIQUE: PA and lateral views FINDINGS: The superior mediastinal structures are midline. The cardiac silhouette is unremarkable in size, shape, and position. The diaphragmatic surfaces of the lungs are regular, and the costophrenic angles are clear. The pulmonary ochoa are clear. The imaged osseous structures are intact. IMPRESSION: There is no acute cardiopulmonary disease. <Electronically signed by Knig Arroyo > 03/13/21 [id number]
[2021-03-13] MEDS: BICITRA 30ML SOLN UDC PO SCH ×2 (12:59→22:18)
[2021-03-13] MEDS: DOXYCYCLINE HYCLATE 100MG TABLET PO SCH ×2 (12:59→22:20)
--- NOTE | 2021-03-13 13:29 | IPNPDOC ---
Text Note Date of Service The patient was seen on 03/13/21. NOTE Subjective: Patient was seen and examined at bedside. She reports she is feeling a lot better than yesterday. Denies having any vomiting, nausea. Reports having mild cough and bringing up some clear sputum. She denies having any abdominal pain, diarrhea. Off note: 40-year-old female with no known past medical history, presents to ED with lightheadedness and loss of consciousness. Objective: General: Patient is awake, alert, oriented times three, laying in bed , no appa rent distress. Cardiovascular: S1, S2, normal rhythm, no murmur, rub, or gallop. Respiratory: Chest is clear to auscultation bilaterally, No rhonchi, wheezes or rubs. Abdomen: Soft, bowel sounds positive, no bruits. She does have an big umbilical hernia 15 X 15 cm protruding, nonreducible, denies having any pain on palpation. Extremities: No clubbing or cyanosis. No edema, no tenderness. Central nervous system (EX CHEF): Awake, alert and fully oriented. Patient is physically challenged. Skin: She does have rash in her abdominal folds and in the pelvic region. Vaginal: Patient reports to have vaginal bleeding, no clots. She reports her last LMP was 2-3 weeks ago. Imaging: Portable CXR 03/11: No acute cardiopulmonary process appreciated. Head CT 03/11: No acute intracranial abnormality. Abdomen / Pelvis CT 03/11: 1. Large midline ventral hernia located just above the umbilicus, which contains a portion of the mid transverse colon and loops of small bowel. No bowel strangulation or obstruction. 2. Submucosal fat deposition in the wall of the cecum and ascending colon, which may be the sequela of a prior colitis or may be related to obesity. 3. Colonic diverticulosis without evidence for diverticulitis. 4. Fluid fluid level in the gallbladder with higher attenuation material layering in the dependent portion of the gallbladder, which may represent biliary sludge. 5. Fibroid uterus. 6. No abscess in the abdomen or pelvis. Renal US 03/12 Echogenic kidneys, suggesting chronic medical renal disease, without other demonstrated abnormality. Vascular US 03/12: 1. There is mild plaque with Doppler evidence of less than 50% carotid artery stenosis on the right. This is on the basis of peak internal carotid artery systolic velocity and peak ICA/CCA systolic velocity ratio. 2. There is mild plaque with Doppler evidence of less than 50% carotid artery stenosis on the left. This is on the basis of peak internal carotid artery s ystolic velocity and peak ICA/CCA systolic velocity ratio. 3. Antegrade vertebral artery flow bilaterally. Pelvic US 03/12: 1. 1.4 cm vascular lesion along the endometrium, likely polyp. Recommend further gynecologic evaluation. 2. 5.0 cm subserosal uterine fibroid. 3. Unremarkable ovaries. Labs: [03/13/2021] Vitals: Temperature 98.9, pulse 95, RR 18, blood pressure 137/75, saturation 98% on room air CBC WBC 9.3 [trending down], Hb 10.6, HCT 33.7, platelets 262. BMP: NA 141, K3.2, CL 113, HCO3 16, BUN 44, creatinine 2.76, glucose 162, LA 4.1 [repeat follow-up trending down] Pro-Daren 0.35, MRSA positive. Assessment: 40-year-old female patient with no significant past medical history presented after having a witnessed syncopal episode and was brought to the ED. In the emergency department patient was found to be in acute kidney injury, metabolic acidosis, lactic acidosis and hypokalemia. Patient was admitted for further management. Nephrology was consulted for the same. Plan: 1) Acute kidney injury: - Patient likely had JAYDE versus ATN likely due to her dehydration from repeated episodes of vomiting on presentation. FENa was 0.1% suggesting prerenal. - Patient was treated with IV fluids. - Nephrology was consulted for the same managing her for JAYDE versus ATN. - Patient's creatinine is improving 2.76 today. - Avoid nephrotoxic medication. - Patient has Barton in place and producing clear urine. - Fluids are being managed by nephrology. 2. Metabolic acidosis: -ABG in the morning showed patient is on non-anion gap metabolic acidosis with compensation. -Likely her metabolic acidosis might be due to dehydration/lactic acidosis. 3. Hypokalemia: -Patient is getting oral potassium replacement. - Her potassium today morning is 3.2 4. Suspected infection: Unclear etiology - Likely from her skin infection in the pelvic region[which is MRSA positive] -We will get a repeat chest x-ray to rule out pneumonia. -Blood cultures done on 03/11/2021 - negative -For the infection in the pelvic region she did get a dose of fluconazole. -Patient's procalcitonin level is 0.35 -We will continue topical ketoconazole cream. -Given her renal issue she only got 1 dose of vancomycin yesterday, and got 2 doses of Zosyn. Today will DC vancomycin and Zosyn and will start her on doxycycline and Augmentin. -Doxycycline to cover MRSA and Augmentin as her lactate is elevated and source of infection unclear as of now. -We will get a chest x-ray to rule out pneumonia. 5. Soft tissue infection vs cellulitis: -We will start patient on doxycycline for MRSA and Augmentin as a broad- spectrum. 6. Syncopal episode: -Likely due to her vomiting and dehydration. -Echo pending and will continue telemetry. 7. DVT prophylaxis: - TEDs and sequentials plus heparin SQ VS,Fishbone, I+O VS, Fishbone, I+O Laboratory Tests 03/12/21 16:05 03/13/21 04:41 Vital Signs Date Time Temp Pulse Resp B/P (MAP) Pulse Ox O2 Delivery O2 Flow Rate FiO2 03/13/21 11:32 98.0 99 18 131/83 (99) 98 Room Air I&O- Last 24 Hours up to 6 AM 03/13/21 06:00 Intake Total 5160 ml Output Total 725 ml Balance 4435 ml GME ATTESTATION GME ATTESTATION My faculty preceptor for this patient encounter was physically present during the encounter and was fully available. All aspects of the patient interview, examination, medical decision making process, and medical care plan development were reviewed and approved by the faculty preceptor. The faculty preceptor is aware and concurs with the plan as stated in the body of this note and will attest to such by his/her cosignature. ATTENDING NOTE I, Kale Zambrano, have independently examined this patient and performed my own physical exam, as well as reviewed the documentation and edited where necessary. I have discussed in detail with the resident / student the findings and plan of treatment as documented by the resident / student and edited their note. I agree with their findings and treatment plan and have edited their documentation. I will continue to follow the patient during this hospital stay. Gale De La Vega MD Mar 13, 2021 13:29 KALE ZAMBRANO MD Mar 13, 2021 14:37
[2021-03-13] MEDS: SODIUM CHLORIDE IV SCH ×2 (16:18→23:01)
[2021-03-13] MEDS: POTASSIUM CHLORIDE IV SCH ×2 (16:18→23:01)
[2021-03-13] MEDS: [UNRECOGNIZED DRUG - OTHER] IV SCH ×2 (16:18→23:01)
[2021-03-13] MEDS: KETOCONAZOLE 2% CREAM TOP SCH (22:14)
[2021-03-13] MEDS: AUGMENTIN 500 MG TAB PO SCH (22:20)
[2021-03-14 04:00] VITALS: BP 133/86
[2021-03-14 04:46] VITALS: BP_SYST 133; BP_DIAS 84; BP_DIAS 86
[2021-03-14 05:16] LABS: HEMOGLOBIN 10.3 g/dl (12.0-15.5); MEAN CORPUSCULAR HEMOGLOBIN 22.8 pg (27.0-33.0); MEAN CORPUSCULAR HGB CONC 31.2 g/dl (32.0-36.5); MEAN CORPUSCULAR VOLUME 73.2 fl (80.0-96.0); PLATELET COUNT, AUTOMATED 265 10^3/uL (150-450); RED BLOOD COUNT 4.51 10^6/uL (4.00-5.40); WHITE BLOOD COUNT 8.6 10^3/uL (4.0-10.0)
[2021-03-14 05:40] LABS: ALBUMIN 2.3 GM/DL (3.2-5.2); BILIRUBIN,TOTAL 0.9 MG/DL (0.2-1.0); CALCIUM LEVEL 7.6 MG/DL (8.5-10.1); CREATININE FOR GFR 1.35 MG/DL (0.55-1.30); MAGNESIUM LEVEL 1.4 MG/DL (1.8-2.4); POTASSIUM SERUM 3.9 MEQ/L (3.5-5.1); TOTAL PROTEIN 5.7 GM/DL (6.4-8.2)
[2021-03-14 05:47] LABS: ANISOCYTOSIS 2+; EOSINOPHILS 7 % (0-3); LYMPHOCYTES 13 % (16-44); METAMYELOCYTES 1 % (0-0); MONOCYTES 10 % (0-5); NEUTROPHILS 68 % (28-66); PLATELET ESTIMATE NORMAL (NORMAL)
[2021-03-14 05:49] LABS: POLYCHROMASIA 1+
[2021-03-14] MEDS: AUGMENTIN 500 MG TAB PO SCH ×3 (06:48→21:21)
[2021-03-14] MEDS: HEPARIN SOD (PORCINE) 5000UNITS/ML 1ML VIAL/SYRINGE SC SCH ×3 (06:49→21:22)
[2021-03-14 08:16] VITALS: BP 143/81
[2021-03-14] MEDS: DOXYCYCLINE HYCLATE 100MG TABLET PO SCH ×2 (08:28→21:21)
[2021-03-14] MEDS: BICITRA 30ML SOLN UDC PO SCH ×2 (08:28→21:20)
[2021-03-14] MEDS: FOLIC ACID 1 MG TAB PO SCH (08:28)
[2021-03-14] MEDS: THIAMINE 100 MG TAB PO SCH ×2 (08:28→21:21)
[2021-03-14] MEDS: DOCUSATE SODIUM 100MG CAPSULE PO SCH ×2 (08:28→21:00)
[2021-03-14] MEDS: MULTIVITAMINS/MINERALS THERAP 1 TAB PO SCH (08:28)
[2021-03-14] MEDS: POTASSIUM CHLORIDE 10 MEQ SR TABLET PO SCH ×2 (08:28→21:21)
[2021-03-14] MEDS: MAG SULF 1GM/100ML (MAG RUN) 1 GM in IV 1 EA IV SCH ×3 (08:29→10:43)
[2021-03-14] MEDS: TRIPLE PASTE 2OZ OINTMENT TOP SCH (08:30)
[2021-03-14 09:01] LABS: AMORPHOUS SEDIMENT SMALL (NEGATIVE); APPEARANCE, URINE CLOUDY (CLEAR); BACTERIA, URINE AUTO 1+ (NEGATIVE); BILIRUBIN, URINE AUTO NEGATIVE (NEGATIVE); BLOOD, URINE BLOOD 2+ (NEGATIVE); CALCIUM OXALATE CRYSTALS SMALL; COLOR, URINE YELLOW (YELLOW); GLUCOSE, URINE (UA) AUTO 1+ mg/dL (NEGATIVE); KETONE, URINE AUTO NEGATIVE (NEGATIVE); LEUKOCYTE ESTERASE, URINE AUTO TRACE (NEGATIVE); MUCUS, URINE SMALL (NEGATIVE); NITRITE, URINE AUTO NEGATIVE (NEGATIVE); PROTEIN, URINE AUTO 1+ mg/dL (NEGATIVE); RBC, URINE AUTO 9 /HPF (0-3); SPECIFIC GRAVITY URINE AUTO 1.019 (1.002-1.035); SQUAMOUS EPITHELIAL CELL UR AU 2 /HPF (0-6); UROBILINOGEN, URINE AUTO 0.2 mg/dL (0.0-2.0); WBC, URINE AUTO 12 /HPF (0-3)
[2021-03-14] MEDS ORDERED: NS 500 ML IV ONE (11:00)
--- NOTE | 2021-03-14 11:49 | IPN ---
PROGRESS NOTE DATE: 03/14/2021 SUBJECTIVE: The patient was seen and examined at the bedside today morning. She is feeling better today. She does not feel anymore dizziness. She is getting out of bed now. She is nonoliguric. Renal function continues to improve. IV fluids were stopped today morning. OBJECTIVE: VITAL SIGNS: Temperature 98.2 degrees Fahrenheit, blood pressure 143/61, pulse 102, respiratory rate 20, saturating 94%% on room air. INTAKE/OUTPUT: Urine output recorded as 750 mL yesterday, 280 mL so far today since overnight, and weight on the bed scale is 107.7 kg yesterday. GENERAL: The patient is awake, alert, and oriented x3. Obese body habitus. Lying in bed in no apparent distress. HEAD/NECK: Extraocular muscles intact. Pupils equal, round, reactive to light. Mucous membranes are moist. Neck is supple. There is no JVD. CARDIOVASCULAR: S1, S2. Tachycardia. No significant edema of the bilateral lower extremities. RESPIRATORY: Chest is clear to auscultation bilaterally. Bilaterally currently no rales or rhonchi. ABDOMEN: Soft with positive bowel sounds. Large supraumbilical hernia is noted. No tenderness. MUSCULOSKELETAL: No clubbing or cyanosis. Pulses are 2+. 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 Power is 5/5 in all extremities. LABORATORY REVIEW: CBC showed WBC of 8.6, hemoglobin 10.3, platelets 265,000. Repeat urinalysis done today showed it was cloudy with 1+ protein and 2+ blood. Negative leukocyte esterase. BMP done today morning showed sodium 142, potassium 3.9, chloride 115, bicarb 19, BUN 27, creatinine 1.3. Lactic acid is 3.4 today. Magnesium 1.4. Albumin 2.3. Beta-hydroxybutyrate yesterday had improved. CURRENT INPATIENT MEDICATIONS: The patient's medications were all reviewed by myself. She is not getting any IV fluids at this time. I gave her 500 mL of normal saline bolus. She is getting IV mag runs. She has been started on oral Augmentin and doxycycline. No other significant change in the medications today. ASSESSMENT AND PLAN: 1. Acute renal failure. The patient is nonoliguric. Renal function continues to improve. Barton catheter will be removed today. 2. Sepsis with an unknown source. The patient has been switched to oral antibiotic including Augmentin and doxycycline. Leukocytosis is getting better. She still has lactic acidosis. 500 mL of normal saline bolus was ordered again. 3. High anion gap metabolic acidosis with lactic acidosis. Acidosis is resolving. She still has lactic acidosis. Continue oral Bicitra 30 mg p.o. twice a day. 4. Hypokalemia. This has resolved. Continue current dose of potassium chloride 40 mEq p.o. twice a day. 5. Hypomagnesemia. The patient is getting IV magnesium at this time.
[2021-03-14] MEDS: IRON SUCROSE 200 MG in NS 100 ML IV SCH (13:25)
[2021-03-14] MEDS: NYSTATIN 100,000 UNITS/GM TOPICAL PWD 15 GM TOP SCH ×2 (13:26→21:20)
--- NOTE | 2021-03-14 18:30 | IPNPDOC ---
Text Note Date of Service The patient was seen on 03/14/21. NOTE Subjective: Patient was seen and examined at bedside today. She reports that she is feeling better than yesterday. She denies having any complaints. She reports her cough is also getting better. She did report having itching in her vaginal region and inguinal region. Objective: General: Patient is awake, alert, oriented times three, laying in bed , no apparent distress. Cardiovascular: S1, S2, normal rhythm, no murmur, rub, or gallop. Respiratory: Chest is clear to auscultation bilaterally, No rhonchi, wheezes or rubs. Abdomen: Soft, bowel sounds positive, no bruits. She does have an big umbilical hernia 15 X 15 cm protruding, nonreducible, denies having any pain on palpation. At the base of the umbilical hernia she does have some intertrigo Extremities: No clubbing or cyanosis. No edema, no tenderness. Central nervous system (SAS PROGRAMMER): Awake, alert and fully oriented. Patient is physically challenged. Skin: She does have intertrigo rash in her abdominal folds and in the pelvic region. Vaginal: Patient reports to have vaginal bleeding, no clots. She reports her last LMP was 2-3 weeks ago. Imaging: Portable CXR 03/11: No acute cardiopulmonary process appreciated. Head CT 03/11: No acute intracranial abnormality. Abdomen / Pelvis CT 03/11: 1. Large midline ventral hernia located just above the umbilicus, which contains a portion of the mid transverse colon and loops of small bowel. No bowel strangulation or obstruction. 2. Submucosal fat deposition in the wall of the cecum and ascending colon, which may be the sequela of a prior colitis or may be related to obesity. 3. Colonic diverticulosis without evidence for diverticulitis. 4. Fluid fluid level in the gallbladder with higher attenuation material layering in the dependent portion of the gallbladder, which may represent biliary sludge. 5. Fibroid uterus. 6. No abscess in the abdomen or pelvis. Renal US 03/12 Echogenic kidneys, suggesting chronic medical renal disease, without other demonstrated abnormality. Vascular US 03/12: 1. There is mild plaque with Doppler evidence of less than 50% carotid artery stenosis on the right. This is on the basis of peak internal carotid artery systolic velocity and peak ICA/CCA systolic velocity ratio. 2. There is mild plaque with Doppler evidence of less than 50% carotid artery stenosis on the left. This is on the basis of peak internal carotid artery systolic velocity and peak ICA/CCA systolic velocity ratio. 3. Antegrade vertebral artery flow bilaterally. Pelvic US 03/12: 1. 1.4 cm vascular lesion along the endometrium, likely polyp. Recommend further gynecologic evaluation. 2. 5.0 cm subserosal uterine fibroid. 3. Unremarkable ovaries. Chest x-ray done on 03/13/2021: Reported as: No acute cardiopulmonary changes. Labs: [03/14/2021] Vitals: Temperature 98.6, HR 102, RR 18, BP 133/86, oxygen 97% on room air. CBC WBC 8.6, Hb 10.3, HCT 33, platelet 265. BMP NA 142, K3.9, CL 115, HCO3 19, BUN 27, creatinine 1.35, glucose 100, MG 1.4. Assessment: 40-year-old female patient with no significant past medical history presented after having a witnessed syncopal episode and was brought to the ED. In the emergency department patient was found to be in acute kidney injury, metabolic acidosis, lactic acidosis and hypokalemia. Patient was admitted for further management. Nephrology was consulted for the same. Plan: 1) Acute kidney injury: - Patient likely had JAYDE vs ATN likely due to her dehydration from repeated episodes of vomiting on presentation. FENa was 0.1% suggesting prerenal. - Patient was treated with IV fluids. - Nephrology was consulted for the same managing her for JAYDE vs ATN. - Patient's creatinine is improving 1.35 came down from 2.76 . - Avoid nephrotoxic medication. - Patient has Barton in place and producing clear urine. - Fluids are being managed by nephrology. 2. Metabolic acidosis: -ABG in the morning showed patient is on non-anion gap metabolic acidosis with compensation. -Likely her metabolic acidosis might be due to dehydration/lactic acidosis. -Her lactic acidosis might be due to infection in her inguinal region and abdominal folds, PRIZE COORDINATOR Dr. Lynn was consulted, will appreciate his input and recommendations. 3. Hypokalemia: -Patient is getting oral potassium replacement. - Her potassium today morning is 3.9, patient did have low magnesium level of 1.4 and was replaced. 4. Suspected infection - Likely from her skin and soft tissue infection in the pelvic region -We will get a repeat chest x-ray to rule out pneumonia. -Blood cultures done on 03/11/2021 - negative -For the infection in the pelvic region she did receive a dose fluconazole. -Patient's procalcitonin level is 0.35 -We will continue topical ketoconazole cream. -Patient is on D2 of doxycycline on Augmentin. -Patient's chest x-ray yesterday showed no acute cardiopulmonary disease. 5. Soft tissue infection vs cellulitis: -We will start patient on doxycycline for MRSA and Augmentin as a broad- spectrum. [D 2 of doxy and Augmentin] 6. Syncopal episode: -Likely due to her vomiting and dehydration. -Echo pending and will continue telemetry. 7. DVT prophylaxis: - TEDs and sequentials plus heparin SQ. Disposition: Based on clinical improvement.. VS,Fishbone, I+O VS, Fishbone, I+O Laboratory Tests 03/14/21 05:05 Vital Signs Date Time Temp Pulse Resp B/P (MAP) Pulse Ox O2 Delivery O2 Flow Rate FiO2 03/14/21 08:16 98.2 102 20 143/81 (101) 94 Room Air I&O- Last 24 Hours up to 6 AM 03/14/21 06:00 Intake Total 2215 ml Output Total 775 ml Balance 1440 ml GME ATTESTATION GME ATTESTATION My faculty preceptor for this patient encounter was physically present during the encounter and was fully available. All aspects of the patient interview, examination, medical decision making process, and medical care plan development were reviewed and approved by the faculty preceptor. The faculty preceptor is aware and concurs with the plan as stated in the body of this note and will attest to such by his/her cosignature. ATTENDING NOTE I, Kale Franklin, have independently examined this patient and performed my own physical exam, as well as reviewed the documentation and edited where necessary. I have discussed in detail with the resident / student the findings and plan of treatment as documented by the resident / student and edited their note. I agree with their findings and treatment plan and have edited their documentation. I will continue to follow the patient during this hospital stay. Gale De La Vega MD Mar 14, 2021 18:30 KALE FRANKLIN MD Mar 14, 2021 21:21
[2021-03-14 20:00] VITALS: BP 136/88
--- NOTE | 2021-03-14 23:11 | ECHO ---
ECHOCARDIOGRAM DATE OF PROCEDURE: 03/13/2021 Age: 40 Gender: Female Height: 66 inches Weight: 207 pounds Body surface area: 2.03 m2 PATIENT LOCATION: Inpatient PCU Room 3212 REFERRING PHYSICIAN: Dr. Royal Dooley INDICATION: Syncope MEASUREMENTS: 2D Measurements: RV 3.0 cm LV 4.8 cm Septum 1.0 cm Posterior wall 1.0 cm Aortic Root 3.6 cm LA 3.6 cm LVEF 75% Doppler Measurements: AV 1.65 m/s LVOT - 1.16 m/s LVOT diameter 2.0 cm MV-E 110, A 96, EA ratio 1.1 Early mitral deceleration time 161 msec E prime medial 9.1, A prime medial 14, E prime lateral 12.7 Average E/E prime ratio 10/PCWP 14.4 mmHg PV 1.2 msec Pulmonary artery acceleration time 92 msec RVSP 47 mmHg IVC 2.3 cm COMMENTS: Sinus tachycardia without intraventricular conduction disturbance. Challenging study in light of the patient's body habitus, but diagnostically useful information was still obtained. M-mode and 2-dimensional echocardiography was performed with pulse, continuous wave, color flow, and tissue Doppler studies. Normal left ventricular size, wall thickness and hyperkinetic wall motion. Normal left atrial size and Doppler assessment of LV diastolic function and estimated mean left atrial pressure. Normal appearing right heart chamber sizes and wall motion with Doppler evidence of moderate pulmonary hypertension. Mildly dilated inferior vena cava with normal respiratory collapse in keeping with central venous pressure upper limits of normal. Normal aortic diameters. Normal appearing aortic valvular apparatus without stenosis or insufficiency. Normal appearing mitral valvular structures with no inflow tract obstruction and no more than trace insufficiency. Normal appearing tricuspid valve with very mild insufficiency. No apparent intracardiac mass or pericardial effusion.
[2021-03-15 04:00] VITALS: BP 134/88
[2021-03-15 05:26] LABS: HEMATOCRIT 33.4 % (36.0-47.0); HEMOGLOBIN 10.3 g/dl (12.0-15.5); MEAN CORPUSCULAR HEMOGLOBIN 23.1 pg (27.0-33.0); MEAN CORPUSCULAR HGB CONC 30.8 g/dl (32.0-36.5); MEAN CORPUSCULAR VOLUME 74.9 fl (80.0-96.0); RED BLOOD COUNT 4.46 10^6/uL (4.00-5.40); WHITE BLOOD COUNT 8.7 10^3/uL (4.0-10.0)
--- NOTE | 2021-03-15 05:30 | CR.PDOC ---
General Date of Consultation: Mar 15, 2021 Consultation REASON FOR CONSULTATION/CHIEF COMPLAINT: perineal ulcerations. HISTORY OF PRESENT ILLNESS: 39-year-old female is hospital day #3 after being a dmitted with a syncopal episode. She was taken to ER by ambulance. She was noted to be dehydrated and have evidence of sepsis with acute renal failure. Patient is a poor historian. She was noted to have multiple ulcerations of her skin in the perineal area. She ulcerations in the groin region as well as in the area of the mons pubis beneath her pannus. She claims the area was itchy. She had no specific treatment. Patient not seen a doctor in many years, thus had no medical history or treatment ALLERGIES: Please see below. HOME MEDICATIONS: Please see below. PAST MEDICAL HISTORY: None PAST SURGICAL HISTORY: None FAMILY HISTORY: Unknown SOCIAL HISTORY: Marital status and/or living arrangements: Single Children: None Employment: None REVIEW OF SYSTEMS: Negative except which is already mentioned PHYSICAL EXAMINATION: VITAL SIGNS: Please see below. GENERAL APPEARANCE: No apparent distress. HEENT: NCAT RESPIRATORY: Clear to auscultation. CARDIOVASCULAR: RRR. ABDOMEN: Nontender. Large ventral hernia, ulceration of the umbilicus through to the level of the dermis Pelvic: Superficial ulcerations in the groins bilaterally. Large superficial ulceration under her pannus in the mons pubis with evidence of yeast superinfection. EXTREMITIES: Nontender. NEUROLOGICAL: header operator II through XII intact. LABORATORY DATA: Please see below. ASSESSMENT/PLAN: 39-year-old female with acute renal failure sepsis and dehydration, hospital a #3. Sepsis likely occurred as a result of infection due to breakdown in her skin in the pelvic region. 1. Keep entire area clean and dry. There is evidence of feces contamination of the wounds 2. Use nystatin powder twice a day to the wounds 3. Educate the patient in keeping the area clean and dry 4. Please have patient follow-up with [facility] [employer] [facility] as an outpatient to ensure resolution of ulcerations 5. I do not think there is a role for barrier protection of wounds at this time Vital Signs/I&O Vital Signs Date Time Temp Pulse Resp B/P (MAP) Pulse Ox O2 Delivery O2 Flow Rate FiO2 03/15/21 04:00 98.1 99 18 134/88 (103) 98 Room Air I&O- Last 24 Hours up to 6 AM 03/15/21 06:00 Intake Total 5195 ml Output Total 205 ml Balance 4990 ml Laboratory Data Labs 24H Laboratory Tests 2 03/14/21 07:54: Lactic Acid Level 3.4*H 03/14/21 08:44: Urine Color YELLOW, Urine Appearance CLOUDYH, Urine pH 5.0, Urine Specific [place] 1.019, Urine Protein 1+H, Urine Glucose (Auto)(UA) 1+H, Urine Ketones (Auto) NEGATIVE, Urine Blood 2+H, Urine Nitrite NEGATIVE, Urine Bilirubin NEGAT CECILIA, Urine Urobilinogen 0.2, Urine Leukocyte Esterase (Auto) TRACEH, Urine WBC (Auto) 12H, Urine RBC (Auto) 9H, Urine Hyaline Casts (Auto) 21, Urine Bacteria (Auto) 1+H, Urine Squamous Epithelial Cells 2, Urine Calcium Oxalate Cryst (Auto) SMALL, Urine Amorphous Sediment (Auto) SMALLH, Urine Mucus (Auto) SMALL, Urine Sperm (Auto) 03/14/21 12:18: Lactic Acid Followup at 4 Hours 4.4*H 03/15/21 05:08: CBC/BMP Microbiology Microbiology 03/12/21 Blood Culture - Preliminary, Resulted No Growth after 48 hours. All Specime... 03/12/21 Urine Culture - Final, Complete 03/11/21 Blood Culture - Preliminary, Resulted No Growth after 72 hours. All specime... Allergies Coded Allergies: No Known Allergies (Unverified , 03/11/21) Home Medications Scheduled PRN Albuterol Sulfate (Proair Hfa) 8.5 Gm Hfa.aer.ad, 2 PUFF INH Q4H PRN for SOB/WHEEZING, (Reported) HERNESTO RODRIGUEZ MD Mar 15, 2021 05:30
[2021-03-15 05:46] LABS: ALBUMIN 2.4 GM/DL (3.2-5.2); ALT/SGPT 39 U/L (12-78); BILIRUBIN,TOTAL 0.6 MG/DL (0.2-1.0); BLOOD UREA NITROGEN 16 MG/DL (7-18); CALCIUM LEVEL 7.7 MG/DL (8.5-10.1); CARBON DIOXIDE LEVEL 17 MEQ/L (21-32); CHLORIDE LEVEL 115 MEQ/L (98-107); CREATININE FOR GFR 0.88 MG/DL (0.55-1.30); GLOMERULAR FILTRATION RATE > 60.0 (>58); GLUCOSE, FASTING 95 MG/DL (70-100); MAGNESIUM LEVEL 1.6 MG/DL (1.8-2.4); SODIUM LEVEL 143 MEQ/L (136-145); TOTAL PROTEIN 5.5 GM/DL (6.4-8.2)
[2021-03-15 05:57] LABS: EOSINOPHILS 3 % (0-3); LYMPHOCYTES 21 % (16-44); METAMYELOCYTES 3 % (0-0); MONOCYTES 6 % (0-5); MYELOCYTES 1 % (0-0); NEUTROPHILS 62 % (28-66); PLATELET CLUMPS MODERATE AMT; PLATELET ESTIMATE NORMAL (NORMAL)
[2021-03-15 05:58] LABS: ANISOCYTOSIS 4+
[2021-03-15 05:59] LABS: OVALOCYTES 1+; POLYCHROMASIA 1+; SMUDGE CELLS 1+
[2021-03-15] MEDS: HEPARIN SOD (PORCINE) 5000UNITS/ML 1ML VIAL/SYRINGE SC SCH ×3 (06:18→22:27)
[2021-03-15] MEDS: AUGMENTIN 500 MG TAB PO SCH ×3 (06:18→22:27)
[2021-03-15 08:12] VITALS: BP 142/92
[2021-03-15] MEDS: FOLIC ACID 1 MG TAB PO SCH (08:18)
[2021-03-15] MEDS: BICITRA 30ML SOLN UDC PO SCH ×2 (08:18→22:27)
[2021-03-15] MEDS: POTASSIUM CHLORIDE 10 MEQ SR TABLET PO SCH ×2 (08:18→22:28)
[2021-03-15] MEDS: MAG SULF 1GM/100ML (MAG RUN) 1 GM in IV 1 EA IV SCH ×2 (08:18→09:43)
[2021-03-15] MEDS: MULTIVITAMINS/MINERALS THERAP 1 TAB PO SCH (08:18)
[2021-03-15] MEDS: DOXYCYCLINE HYCLATE 100MG TABLET PO SCH ×2 (08:18→22:27)
[2021-03-15] MEDS: NYSTATIN 100,000 UNITS/GM TOPICAL PWD 15 GM TOP SCH ×2 (08:19→22:27)
[2021-03-15] MEDS: DOCUSATE SODIUM 100MG CAPSULE PO SCH ×2 (08:19→21:00)
[2021-03-15] MEDS: IRON SUCROSE 200 MG in NS 100 ML IV SCH (10:45)
[2021-03-15 12:30] LABS: NT-PRO BNP 696 PG/ML (<125)
[2021-03-15 13:32] LABS: HIV 1&2 SCREEN CENTAUR NEGATIVE (NEGATIVE)
--- NOTE | 2021-03-15 15:00 | IPNPDOC ---
Text Note Date of Service The patient was seen on 03/15/21. NOTE Subjective: Patient seen and examined at bedside. Patient reports doing well and feeling better than yesterday. She denies having any complaints. She reports her cough is much better. She reports having itching in the inguinal and groin region. She denies having any nausea, vomiting, shortness of breath, abdominal pain, she does have bowel accidents when she is in bed. Her Barton was removed today. Objective: General: Patient is alert oriented x3, laying in bed, no apparent distress. Cardiac: S1 and S2 normal, regular rate and rhythm. Respiratory Chest is clear to auscultation bilaterally, No rhonchi, wheezes or rubs. Abdomen: Soft, bowel sounds positive, no bruits. She does have an big umbilical hernia 15 X 15 cm protruding, nonreducible, denies having any pain on palpation. At the base of the umbilical hernia she does have some intertrigo Extremities: No clubbing or cyanosis. No edema, no tenderness. Central nervous system (TODDLER LEAD TEACHER): Awake, alert and fully oriented. Patient is physically challenged. Skin: She does have intertrigo rash in her abdominal folds and in the pelvic region. Vaginal: Patient reports to have vaginal bleeding, no clots. She reports her last LMP was 2-3 weeks ago. Imaging: Portable CXR 03/11: No acute cardiopulmonary process appreciated. Head CT 03/11: No acute intracranial abnormality. Abdomen / Pelvis CT 03/11: 1. Large midline ventral hernia located just above the umbilicus, which contains a portion of the mid transverse colon and loops of small bowel. No bowel strangulation or obstruction. 2. Submucosal fat deposition in the wall of the cecum and ascending colon, which may be the sequela of a prior colitis or may be related to obesity. 3. Colonic diverticulosis without evidence for diverticulitis. 4. Fluid fluid level in the gallbladder with higher attenuation material layering in the dependent portion of the gallbladder, which may represent biliary sludge. 5. Fibroid uterus. 6. No abscess in the abdomen or pelvis. Renal US 03/12 Echogenic kidneys, suggesting chronic medical renal disease, without other demonstrated abnormality. Vascular US 03/12: 1. There is mild plaque with Doppler evidence of less than 50% carotid artery stenosis on the right. This is on the basis of peak internal carotid artery systolic velocity and peak ICA/CCA systolic velocity ratio. 2. There is mild plaque with Doppler evidence of less than 50% carotid artery stenosis on the left. This is on the basis of peak internal carotid artery systolic velocity and peak ICA/CCA systolic velocity ratio. 3. Antegrade vertebral artery flow bilaterally. Pelvic US 03/12: 1. 1.4 cm vascular lesion along the endometrium, likely polyp. Recommend further gynecologic evaluation. 2. 5.0 cm subserosal uterine fibroid. 3. Unremarkable ovaries. Chest x-ray done on 03/13/2021: Reported as: No acute cardiopulmonary changes. Assessment: 40-year-old female patient with no significant past medical history presented after having a witnessed syncopal episode and was brought to the ED. In the emergency department patient was found to be in acute kidney injury, metabolic acidosis, lactic acidosis and hypokalemia. Patient was admitted for further management. Nephrology was consulted for the same. Plan: 1) Acute kidney injury: - Patient likely had JAYDE vs ATN likely due to her dehydration from repeated episodes of vomiting on presentation. FENa was 0.1% suggesting prerenal. - Nephrology was consulted for the same managing her for JAYDE vs ATN. Fluids and management nephrology. Her fluids were stopped after giving her boluses. - Patient's creatinine is improving 0.88 from 1.35. - Avoid nephrotoxic medication. - Patient's Barton was removed today. 2. Metabolic acidosis: -Patient is still an metabolic acidosis as her bicarbonate level is 17. -Her lactic acidosis is probably not associated with an infection -Patient's repeat lactate today is still elevated. 3. Lactic acidosis: -Patient has an elevated lactate of three-point 8 in the morning and the repeat lactate was 4.4 4. Hypomagnesemia: -Patient had low mag level of 1.6. - Was replaced with Mg run 5. Hypokalemia: -Patient's hypokalemia has been corrected today and her potassium is 4 this morning. 6. Suspected infection - Likely from her skin and soft tissue infection in the pelvic region -We will get a repeat chest x-ray to rule out pneumonia. -Blood cultures done on 03/11/2021 - negative -s/p fluconazole. -Patient's procalcitonin level is 0.35 -Patient is on D3 of doxycycline on Augmentin. 5. Soft tissue infection vs cellulitis: -We will start patient on doxycycline for MRSA and Augmentin as a broad- spectrum. [D3 of doxy and Augmentin] -Dr. Dodd was contacted regarding this patient and recommended putting her on Interdry after Vashe clean up. 6. Syncopal episode: -Likely due to her vomiting and dehydration. -Echo pending and will continue telemetry. 7. DVT prophylaxis: - TEDs and sequentials plus heparin SQ. VS,Fishbone, I+O VS, Fishbone, I+O Laboratory Tests 03/15/21 05:08 Vital Signs Date Time Temp Pulse Resp B/P (MAP) Pulse Ox O2 Delivery O2 Flow Rate FiO2 03/15/21 08:12 97.8 100 18 142/92 (109) 97 Room Air I&O- Last 24 Hours up to 6 AM 03/15/21 06:00 Intake Total 5195 ml Output Total 205 ml Balance 4990 ml GME ATTESTATION GME ATTESTATION My faculty preceptor for this patient encounter was physically present during the encounter and was fully available. All aspects of the patient interview, examination, medical decision making process, and medical care plan development were reviewed and approved by the faculty preceptor. The faculty preceptor is aware and concurs with the plan as stated in the body of this note and will attest to such by his/her cosignature. ATTENDING NOTE I, Kale Franklin, have independently examined this patient and performed my own physical exam, as well as reviewed the documentation and edited where necessary. I have discussed in detail with the resident / student the findings and plan of treatment as documented by the resident / student and edited their note. I agree with their findings and treatment plan and have edited their documentation. I will continue to follow the patient during this hospital stay. Gale De La Vega MD Mar 15, 2021 15:00 KALE FRANKLIN MD Mar 15, 2021 20:52
[2021-03-15 15:53] LABS: APPEARANCE, URINE CLOUDY (CLEAR); BACTERIA, URINE AUTO 1+ (NEGATIVE); BILIRUBIN, URINE AUTO NEGATIVE (NEGATIVE); BLOOD, URINE BLOOD 3+ (NEGATIVE); CALCIUM OXALATE CRYSTALS MODERATE; COLOR, URINE AMBER (YELLOW); GLUCOSE, URINE (UA) AUTO 1+ mg/dL (NEGATIVE); GRANULAR CAST, URINE AUTO 19 /LPF; KETONE, URINE AUTO TRACE mg/dL (NEGATIVE); LEUKOCYTE ESTERASE, URINE AUTO TRACE (NEGATIVE); MUCUS, URINE SMALL (NEGATIVE); NITRITE, URINE AUTO NEGATIVE (NEGATIVE); PROTEIN, URINE AUTO 1+ mg/dL (NEGATIVE); RBC, URINE AUTO 60 /HPF (0-3); SPECIFIC GRAVITY URINE AUTO 1.028 (1.002-1.035); SQUAMOUS EPITHELIAL CELL UR AU 4 /HPF (0-6); UROBILINOGEN, URINE AUTO 0.2 mg/dL (0.0-2.0); WBC, URINE AUTO 24 /HPF (0-3)
[2021-03-15 16:00] VITALS: BP 121/72
[2021-03-15 20:00] VITALS: BP 131/90
[2021-03-15] MEDS ORDERED: FUROSEMIDE 20MG/2ML VIAL (J1940) IV ONE (20:15)
--- NOTE | 2021-03-15 21:11 | IPN ---
NEPHROLOGY PROGRESS NOTE DATE: 03/15/2021 SUBJECTIVE: The patient was seen and examined at the bedside today morning. He is afebrile, hemodynamically stable, currently he does not have any IV fluids running. The Barton catheter was removed yesterday. Renal function continues to improve. Electrolytes are also improving, however she still has mild persistent lactic acidosis. OBJECTIVE: VITAL SIGNS: Temperature is 97.9 degrees Fahrenheit, blood pressure 121/72, pulse is 103, respiratory rate of 18, saturating 96% on room air. INTAKE AND OUTPUT: Urine output recorded as 405 mL yesterday, 300 mL so far today since overnight. Weight in the bed scale is 111.5 kg which is higher than her weight 2 days ago. PHYSICAL EXAMINATION: GENERAL APPEARANCE: The patient is awake, alert, oriented x3, sitting up in the sofa in no apparent distress. HEAD AND NECK: Extraocular muscles intact. Pupils are equally round and reactive to light. Mucous membranes are moist. Neck is supple. There is no significant jugular venous distention. CARDIOVASCULAR: S1, S2, regular rate. EXTREMITIES: Trace edema of the bilateral lower extremities is noted. RESPIRATORY: Mildly decreased breath sounds at the bases, otherwise no active rales or rhonchi. ABDOMEN: Soft. A large supraumbilical hernia is noted. GENITOURINARY: There is no indwelling Barton catheter at this time. MUSCULOSKELETAL: No clubbing, no cyanosis. Trace edema of the lower extremities. MATCH MAKER: No focal deficits. Power is 5/5 in all extremities. LAB REVIEW: CBC showed a WBC count of 8.7, hemoglobin 10.3, platelet count was 265 yesterday. There was platelet clumping noted. The patient still has band neutrophils and metamyelocytes. BMP showed sodium of 143, potassium 4, chloride 115, bicarbonate 17, BUN 16, creatinine is 0.8. Lactic acid level was 4.1 today. CURRENT INPATIENT MEDICATIONS: The patient's medications were all reviewed by myself. She is being given IV magnesium sulfate. She continues to be on IV Venofer. She is on Augmentin and Doxycycline. I gave her one dose of IV Lasix because she has elevated BNP and in positive fluid balance for the last many days. ASSESSMENT AND PLAN: 1. Acute renal failure it was secondary to sepsis and hypotension. Renal function is resolving. Creatinine is 0.8. No need of IV fluid hydration. 2. Metabolic acidosis the patient has normal anion gap metabolic acidosis now. She has mild lactic acidosis as well. Continue Bicitra at this time. 3. Lactic acidosis Most likely this is associated with infections and ulcerations in the groin with fecal contamination. She still has metamyelocytes and bands on CBC which is a sign of ongoing infection. Continue the antibiotics at this time. 4. Lower extremity edema and elevated BNP the patient's echocardiogram was noted which showed mild fullness of IVC. One dose of IV Lasix was given today. 5. Breakdown of her skin in the pelvic region with ulcerations - The patient was seen by Gynecology. They recommended cleaning the area and keeping the wounds free from feces contamination. Continue the antibiotics.
[2021-03-16 04:00] VITALS: BP 135/88
[2021-03-16 05:33] LABS: HEMATOCRIT 31.5 % (36.0-47.0); HEMOGLOBIN 9.8 g/dl (12.0-15.5); MEAN CORPUSCULAR HGB CONC 31.1 g/dl (32.0-36.5); MEAN CORPUSCULAR VOLUME 73.8 fl (80.0-96.0); PLATELET COUNT, AUTOMATED 273 10^3/uL (150-450); RED BLOOD COUNT 4.27 10^6/uL (4.00-5.40); WHITE BLOOD COUNT 8.4 10^3/uL (4.0-10.0)
[2021-03-16] MEDS: HEPARIN SOD (PORCINE) 5000UNITS/ML 1ML VIAL/SYRINGE SC SCH ×3 (05:40→21:38)
[2021-03-16] MEDS: AUGMENTIN 500 MG TAB PO SCH ×3 (05:40→21:38)
[2021-03-16 06:00] LABS: ALBUMIN 2.3 GM/DL (3.2-5.2); ALT/SGPT 47 U/L (12-78); BILIRUBIN,TOTAL 0.6 MG/DL (0.2-1.0); BLOOD UREA NITROGEN 12 MG/DL (7-18); CALCIUM LEVEL 7.2 MG/DL (8.5-10.1); CARBON DIOXIDE LEVEL 21 MEQ/L (21-32); CHLORIDE LEVEL 108 MEQ/L (98-107); CREATININE FOR GFR 0.87 MG/DL (0.55-1.30); GLOMERULAR FILTRATION RATE > 60.0 (>58); GLUCOSE, FASTING 93 MG/DL (70-100); MAGNESIUM LEVEL 1.5 MG/DL (1.8-2.4); POTASSIUM SERUM 3.6 MEQ/L (3.5-5.1); SODIUM LEVEL 140 MEQ/L (136-145); TOTAL PROTEIN 5.7 GM/DL (6.4-8.2)
[2021-03-16 06:04] LABS: EOSINOPHILS 1 % (0-3); LYMPHOCYTES 24 % (16-44); METAMYELOCYTES 3 % (0-0); MONOCYTES 1 % (0-5); MYELOCYTES 1 % (0-0); NEUTROPHILS 67 % (28-66)
[2021-03-16 06:05] LABS: ANISOCYTOSIS 3+; PLATELET ESTIMATE NORMAL (NORMAL)
[2021-03-16 08:00] VITALS: BP 135/80
[2021-03-16] MEDS: MAG SULF 1GM/100ML (MAG RUN) 1 GM in IV 1 EA IV SCH ×2 (08:16→09:15)
[2021-03-16] MEDS: MULTIVITAMINS/MINERALS THERAP 1 TAB PO SCH (08:20)
[2021-03-16] MEDS: DOXYCYCLINE HYCLATE 100MG TABLET PO SCH ×2 (08:20→21:39)
[2021-03-16] MEDS: FOLIC ACID 1 MG TAB PO SCH (08:20)
[2021-03-16] MEDS: BICITRA 30ML SOLN UDC PO SCH ×2 (08:21→21:38)
[2021-03-16] MEDS: NYSTATIN 100,000 UNITS/GM TOPICAL PWD 15 GM TOP SCH (08:21)
[2021-03-16] MEDS: POTASSIUM CHLORIDE 10 MEQ SR TABLET PO SCH ×2 (08:21→21:38)
[2021-03-16] MEDS: DOCUSATE SODIUM 100MG CAPSULE PO SCH ×2 (08:53→21:39)
[2021-03-16] MEDS ORDERED: IRON SUCROSE 200 MG in NS 100 ML IV SCH (10:00)
[2021-03-16] MEDS ORDERED: FUROSEMIDE 20MG/2ML VIAL (J1940) IV ONE (10:00)
[2021-03-16] MEDS ORDERED: FUROSEMIDE 40MG/4ML VIAL (J1940) IV ONE (11:30)
--- NOTE | 2021-03-16 13:09 | IPN ---
PROGRESS NOTE DATE: 03/16/2021 SUBJECTIVE: Patient was seen and examined at the bedside today morning. She is afebrile, hemodynamically stable. Renal function continues to improve. She denies any dizziness. She still has mildly elevated lactic acid level. She was given a dose of intravenous (IV) Lasix yesterday, and she diuresed well with the Lasix. OBJECTIVE: Vital signs: Temperature is 97.8 degrees Fahrenheit, blood pressure 135/80, pulse is 110, respiratory rate of 18, saturating 97% on room air. Intake and output: Urine output recorded is 1 liter since overnight. Weight in the bed scale is 112.3 kg. PHYSICAL EXAMINATION: GENERAL: Patient is awake, alert, oriented times three. Obese body habitus. Sitting up. HEAD AND NECK: Extraocular muscles are intact. Pupils equally round and reactive to light. Mucous membranes are moist. Neck is supple. There is no jugular venous distention (JVD). CARDIOVASCULAR: S1, S2, regular rate. Trace edema of the bilateral lower extremities. RESPIRATORY: Chest is clear to auscultation bilaterally. Bilateral equal air entry. No rales or rhonchi. ABDOMEN: Soft, obese. Supraumbilical hernia is noted. MUSCULOSKELETAL: No clubbing or cyanosis. Trace edema of the lower extremities. CENTRAL NERVOUS SYSTEM: No focal deficit. Power is 5/5 in all extremities. LABORATORY REVIEW: CBC showed WBC 8.4, hemoglobin 9.8, platelets are 273. BMP showed sodium 140, potassium 3.6, chloride 108, bicarbonate 21, BUN 12, creatinine is 0.8. Lactic acid level was 3.9 in the morning. CURRENT INPATIENT MEDICATIONS: Patient's medications were all reviewed by myself. She was given magnesium sulfate 1 gram IV times two doses. I am going to place her on oral magnesium as well. She was given Lasix 20 mg IV in the morning, and another dose of 40 mg will be given in the afternoon. ASSESSMENT AND PLAN: 1. Acute renal failure. Patient is nonoliguric. Renal function is resolving. Creatinine is less than 1 now. 2. Hypokalemia. It is controlled with current dose of potassium chloride 40 mEq by mouth daily. 3. Hypomagnesemia. Patient is receiving IV magnesium. I am going to start her on oral magnesium as well. 4. Lower extremity edema and elevated brain natriuretic peptide (BNP) levels. Patient got one dose of Lasix in the morning. Another dose is being given in the afternoon. Continue to monitor intake and output and daily weight. 5. Lactic acidosis. Unclear whether it is type A or type B, because patient has infections in the groin, and she was admitted with sepsis; however, yesterday she had elevated BNP levels, and she has some edema, so I am giving her some doses of Lasix as well. Clinically she is hemodynamically stable.
--- NOTE | 2021-03-16 14:56 | IPNPDOC ---
Text Note Date of Service The patient was seen on 03/16/21. NOTE Subjective: Patient examined at bedside today. She denies having any complaints. She reports she is feeling better. She reports her cough is resolved. And her i tching in her inguinal and groin region is better. She denies having any nausea, vomiting, shortness of breath, abdominal pain. Objective: General: Patient is alert oriented x3, sitting in chair, no apparent distress. Cardiac: S1-S2 normal no murmurs appreciated. Respiration: Clear bilateral breath sounds appreciated, no rhonchi or wheezes. Abdomen: Other than the big umbilical hernia which is nonreducible, soft, positive bowel sounds, no tenderness to palpation over the hernia or laterally. Extremities: No clubbing no cyanosis noted. No pitting edema. Skin: She does have intertrigo rash in her abdominal folds and groin region. Imaging: Portable CXR 03/11: No acute cardiopulmonary process appreciated. Head CT 03/11: No acute intracranial abnormality. Abdomen / Pelvis CT 03/11: 1. Large midline ventral hernia located just above the umbilicus, which contains a portion of the mid transverse colon and loops of small bowel. No bowel strangulation or obstruction. 2. Submucosal fat deposition in the wall of the cecum and ascending colon, which may be the sequela of a prior colitis or may be related to obesity. 3. Colonic diverticulosis without evidence for diverticulitis. 4. Fluid fluid level in the gallbladder with higher attenuation material layering in the dependent portion of the gallbladder, which may represent biliary sludge. 5. Fibroid uterus. 6. No abscess in the abdomen or pelvis. Renal US 03/12 Echogenic kidneys, suggesting chronic medical renal disease, without other demonstrated abnormality. Vascular US 03/12: 1. There is mild plaque with Doppler evidence of less than 50% carotid artery stenosis on the right. This is on the basis of peak internal carotid artery systolic velocity and peak ICA/CCA systolic velocity ratio. 2. There is mild plaque with Doppler evidence of less than 50% carotid artery stenosis on the left. This is on the basis of peak internal carotid artery systolic velocity and peak ICA/CCA systolic velocity ratio. 3. Antegrade vertebral artery flow bilaterally. Pelvic US 03/12: 1. 1.4 cm vascular lesion along the endometrium, likely polyp. Recommend further gynecologic evaluation. 2. 5.0 cm subserosal uterine fibroid. 3. Unremarkable ovaries. Chest x-ray done on 03/13/2021: Reported as: No acute cardiopulmonary changes. Assessment: 40-year-old female patient with no significant past medical history presented after having a witnessed syncopal episode and was brought to the ED. In the emergency department patient was found to be in acute kidney injury, metabolic acidosis, lactic acidosis and hypokalemia. Patient was admitted for further management. Plan: 1) Acute kidney injury: -Patient JAYDE has resolved creatinine today morning is 0.87 back to baseline. - Avoid nephrotoxic medication. -Nephrology is following this patient and treating her JAYDE. Fluid and Lasix administration as per nephrology. 2. Metabolic acidosis: -Today morning lab shows her metabolic acidosis is also improving. -Patient's bicarbonate is 21 today. 3. Lactic acidosis: -Patient has an elevated lactate of 3 in the morning and repeat was 3.9. Unclear source of lactic acidosis and type - No signs of overt system infection; does not have any fever, elevated white count 4. Hypomagnesemia: -Patient did receive mag sulfate today morning. 5. Soft tissue infection vs cellulitis: -We will continue patient on doxycycline and Augmentin today would be day 4. -Dr. Dodd was contacted regarding this patient and recommended putting her on Interdry after Vashe clean up. 6. Syncopal episode: -Likely due to her vomiting and dehydration. -Echo pending and will continue telemetry. 7. DVT prophylaxis: - TEDs and sequentials plus heparin SQ. Disposition: Possible discharge tomorrow VS,Fishbone, I+O VS, Fishbone, I+O Laboratory Tests 03/16/21 05:04 Vital Signs Date Time Temp Pulse Resp B/P (MAP) Pulse Ox O2 Delivery O2 Flow Rate FiO2 03/16/21 08:00 97.8 110 18 135/80 (98) 97 Room Air I&O- Last 24 Hours up to 6 AM 03/16/21 06:00 Intake Total 2170 ml Output Total 1700 ml Balance 470 ml GME ATTESTATION GME ATTESTATION My faculty preceptor for this patient encounter was physically present during the encounter and was fully available. All aspects of the patient interview, examination, medical decision making process, and medical care plan development were reviewed and approved by the faculty preceptor. The faculty preceptor is aware and concurs with the plan as stated in the body of this note and will attest to such by his/her cosignature. ATTENDING NOTE I, Kale Zambrano, have independently examined this patient and performed my own physical exam, as well as reviewed the documentation and edited where necessary. I have discussed in detail with the resident / student the findings and plan of treatment as documented by the resident / student and edited their note. I agree with their findings and treatment plan and have edited their documentation. I will continue to follow the patient during this hospital stay. Gale De La Vega MD Mar 16, 2021 14:56 KALE ZAMBRANO MD Mar 16, 2021 15:25
[2021-03-16 16:00] VITALS: BP 141/95
[2021-03-16 18:13] VITALS: BP 151/99
[2021-03-16 22:00] VITALS: BP 151/96
[2021-03-17 06:00] VITALS: BP 145/97
[2021-03-17 06:16] LABS: HEMATOCRIT 31.6 % (36.0-47.0); HEMOGLOBIN 9.9 g/dl (12.0-15.5); MEAN CORPUSCULAR HEMOGLOBIN 23.2 pg (27.0-33.0); MEAN CORPUSCULAR HGB CONC 31.3 g/dl (32.0-36.5); MEAN CORPUSCULAR VOLUME 74.2 fl (80.0-96.0); PLATELET COUNT, AUTOMATED 231 10^3/uL (150-450); RED BLOOD COUNT 4.26 10^6/uL (4.00-5.40); WHITE BLOOD COUNT 6.3 10^3/uL (4.0-10.0)
[2021-03-17] MEDS: HEPARIN SOD (PORCINE) 5000UNITS/ML 1ML VIAL/SYRINGE SC SCH ×3 (06:18→21:37)
[2021-03-17] MEDS: AUGMENTIN 500 MG TAB PO SCH ×3 (06:18→21:36)
[2021-03-17 06:40] LABS: ALBUMIN 2.5 GM/DL (3.2-5.2); ALT/SGPT 43 U/L (12-78); BILIRUBIN,TOTAL 0.8 MG/DL (0.2-1.0); BLOOD UREA NITROGEN 12 MG/DL (7-18); CALCIUM LEVEL 7.3 MG/DL (8.5-10.1); CARBON DIOXIDE LEVEL 27 MEQ/L (21-32); CHLORIDE LEVEL 106 MEQ/L (98-107); GLOMERULAR FILTRATION RATE > 60.0 (>58); GLUCOSE, FASTING 89 MG/DL (70-100); MAGNESIUM LEVEL 1.6 MG/DL (1.8-2.4); NT-PRO BNP 398 PG/ML (<125); POTASSIUM SERUM 3.6 MEQ/L (3.5-5.1); SODIUM LEVEL 139 MEQ/L (136-145); TOTAL PROTEIN 5.5 GM/DL (6.4-8.2)
[2021-03-17 06:53] LABS: LYMPHOCYTES 24 % (16-44); METAMYELOCYTES 1 % (0-0); MONOCYTES 4 % (0-5); NEUTROPHILS 70 % (28-66)
[2021-03-17 06:56] LABS: ANISOCYTOSIS 2+
[2021-03-17 06:57] LABS: MICROCYTOSIS 2+; POLYCHROMASIA 1+
[2021-03-17 07:00] LABS: PLATELET ESTIMATE NORMAL (NORMAL)
[2021-03-17] MEDS ORDERED: DOXYCYCLINE HYCLATE 100MG TABLET PO SCH (08:30)
[2021-03-17] MEDS: POTASSIUM CHLORIDE 10 MEQ SR TABLET PO SCH ×2 (10:14→21:36)
[2021-03-17] MEDS: DOCUSATE SODIUM 100MG CAPSULE PO SCH ×2 (10:14→21:36)
[2021-03-17] MEDS: DOXYCYCLINE HYCLATE 100MG TABLET PO SCH ×2 (10:15→18:21)
[2021-03-17] MEDS ORDERED: MAGNESIUM OXIDE 400MG TAB (MAG-OX) PO ONE (10:15)
[2021-03-17] MEDS: MULTIVITAMINS/MINERALS THERAP 1 TAB PO SCH (10:15)
[2021-03-17] MEDS: BICITRA 30ML SOLN UDC PO SCH ×2 (10:15→21:36)
[2021-03-17] MEDS: FOLIC ACID 1 MG TAB PO SCH (10:16)
[2021-03-17 12:54] LABS: MAGNESIUM LEVEL 1.7 MG/DL (1.8-2.4); PHOSPHORUS LEVEL 0.4 MG/DL (2.5-4.9)
[2021-03-17 14:00] VITALS: BP 138/93
[2021-03-17 14:18] LABS: POTASSIUM RANDOM URINE 43.6 MEQ/L
--- NOTE | 2021-03-17 15:38 | IPNPDOC ---
Text Note Date of Service The patient was seen on 03/17/21. NOTE Subjective: Patient is a 39 year old female with no significant PMHx who presented to the ER on 03/11 via EMS after her neighbor's witnessed a syncopal episode. . She reported that she was walking down the street and felt lightheaded and lost consciousness. There is no urinary or bowel incontinence. No seizure-like activity. Patient was brought to the emergency room and was admitted to the hospitalist service for further evaluation and treatment. Upon arrival to emergency room, patient had significant acute kidney injury, metabolic acidosis, lactic acidosis and hypokalemia. Nephrology was called on consultation. Patient was seen and examined at the bedside. Patient is lying in bed and denies any chest pain, shortness of breath, palpitations, nausea, vomiting, abdominal pain, diarrhea , or urinary discomfort. Objective: Vitals (See below) General: Lying in bed, appears comfortable, AAOx3 HEENT: NC, AT CVS: +S1S2 Lungs: Fair air entry b/l, no evidence of wheezing, rales or rhonchi Abdomen: Soft, ND, NT, +Ventral hernia that is non-tender Extremities: - Edema, - Calf tenderness Imaging: Portable CXR 03/11: No acute cardiopulmonary process appreciated. Head CT 03/11: No acute intracranial abnormality. Abdomen / Pelvis CT 03/11: 1. Large midline ventral hernia located just above the umbilicus, which contains a portion of the mid transverse colon and loops of small bowel. No bowel strangulation or obstruction. 2. Submucosal fat deposition in the wall of the cecum and ascending colon, which may be the sequela of a prior colitis or may be related to obesity. 3. Colonic diverticulosis without evidence for diverticulitis. 4. Fluid fluid level in the gallbladder with higher attenuation material layering in the dependent portion of the gallbladder, which may represent biliary sludge. 5. Fibroid uterus. 6. No abscess in the abdomen or pelvis. Renal US 03/12: Echogenic kidneys, suggesting chronic medical renal disease, without other demonstrated abnormality. Vascular US 03/12: 1. There is mild plaque with Doppler evidence of less than 50% carotid artery stenosis on the right. This is on the basis of peak internal carotid artery systolic velocity and peak ICA/CCA systolic velocity ratio. 2. There is mild plaque with Doppler evidence of less than 50% carotid artery stenosis on the left. This is on the basis of peak internal carotid artery systolic velocity and peak ICA/CCA systolic velocity ratio. 3. Antegrade vertebral artery flow bilaterally. Pelvic US 03/12: 1. 1.4 cm vascular lesion along the endometrium, likely polyp. Recommend further gynecologic evaluation. 2. 5.0 cm subserosal uterine fibroid. 3. Unremarkable ovaries. Chest x-ray done on 03/13/2021: Reported as: No acute cardiopulmonary changes. ECHO 03/13: Sinus tachycardia without intraventricular conduction disturbance. Challenging study in light of the patient's body habitus, but diagnostically useful information was still obtained. M-mode and 2-dimensional echocardiography was performed with pulse, continuous wave, color flow, and tissue Doppler studies. Normal left ventricular size, wall thickness and hyperkinetic wall motion. Normal left atrial size and Doppler assessment of LV diastolic function and estimated mean left atrial pressure. Normal appearing right heart chamber sizes and wall motion with Doppler evidence of moderate pulmonary hypertension. Mildly dilated inferior vena cava with normal respiratory collapse in keeping with central venous pressure upper limits of normal. Normal aortic diameters. Normal appearing aortic valvular apparatus without stenosis or insufficiency. Normal appearing mitral valvular structures with no inflow tract obstruction and no more than trace insufficiency. Normal appearing tricuspid valve with very mild insufficiency. No apparent intracardiac mass or pericardial effusion. Assessment and plan: s/p Syncopal episode - 2/2 vomiting and dehydration - s/p Orthostatic hypotension - ECHO noted above - s/p Telemetry - Cleared PT; anticipate DC home within 24-48 hours s/p Acute kidney injury -likely 2/2 pre-renal etiology - Cr has normalized - Nephrology on consultation; appreciate their input Metabolic acidosis - Bicarbonate appears to have normalized Lactic acidosis - Etiology unclear - Will check Thiamine levels - No signs of overt system infection; does not have any fever, elevated white count Hypomagnesemia - c/w Magnesium supplementation Hypophosphatemia - Will provide phosphate supplementation Soft tissue infection - likely 2/2 intertrigo - c/w wound care as per Dr. Dodd recommendations - c/w Doxycycline and Augmentin; s/p Vancomycin and Zosyn (Antibiotic day #5) Questionable vaginal bleeding - possibly 2/2 vascular lesion along endometrium / subserosal uterine fibroid - Pelvic US noted above - [employer] on consultation; will have outpatient follow up on discharge Obesity - BMI 40.7 - Complicating medical care DVT prophylaxis - c/w Heparin SQ Disposition: - Awaiting clinical improvement VS,Kavya, I+O VSKavya I+O Laboratory Tests 03/17/21 05:56 Vital Signs Date Time Temp Pulse Resp B/P (MAP) Pulse Ox O2 Delivery O2 Flow Rate FiO2 03/17/21 14:00 98.5 103 18 138/93 (108) 98 Room Air I&O- Last 24 Hours up to 6 AM 03/17/21 06:00 Intake Total 760 ml Output Total 200 ml Balance 560 ml EUGENE ZAMBRANO MD Mar 17, 2021 15:37
[2021-03-17] MEDS ORDERED: POTASSIUM PHOSPHATE INJ 30 MMOL in D5W 500 ML IV ONE (16:00)
[2021-03-17] MEDS: THIAMINE 100 MG TAB PO SCH (16:57)
[2021-03-17] MEDS: NEUTRA-PHOS 1.5 GM PACKET PO SCH ×2 (17:00→21:37)
[2021-03-17] MEDS ORDERED: MAGNESIUM OXIDE 400MG TAB (MAG-OX) PO SCH (21:00)
[2021-03-17 22:00] VITALS: BP 139/88
--- NOTE | 2021-03-17 22:38 | IPN ---
NEPHROLOGY PROGRESS NOTE DATE: 03/17/2021 SUBJECTIVE: The patient was seen and examined at the bedside today morning. She was actually sitting up in the sofa. Renal function is significantly better. Electrolytes are improving except that she has hypomagnesemia and hypophosphatemia. The patient denies any active complaints at this time. OBJECTIVE: VITAL SIGNS: Temperature is 98.5 degrees Fahrenheit, blood pressure 138/93, pulse is 103, respiratory rate of 18, saturating 98% on room air. INTAKE AND OUTPUT: Urine output recorded as 1,200 mL yesterday, 150 mL so far today since overnight. Weight in the bed scale was 114.3 kg yesterday. PHYSICAL EXAMINATION: GENERAL APPEARANCE: The patient is awake, alert, oriented x3, sitting up in the sofa in no apparent distress. HEAD AND NECK: Extraocular muscles intact. Pupils are equally round and reactive to light. Mucous membranes are moist. Neck is supple. There is no jugular venous distention. CARDIOVASCULAR: S1, S2, regular rate. EXTREMITIES: No edema of the bilateral lower extremities. RESPIRATORY: Chest is clear to auscultation bilaterally. Bilaterally currently no rales or rhonchi. ABDOMEN: Soft, large supraumbilical hernia is noted. MUSCULOSKELETAL: No clubbing, no cyanosis. Pulses are 2+. ENAMEL APPLIER: No focal deficits. Power is 5/5 in all extremities. LAB REVIEW: CBC showed a WBC count of 6.3, hemoglobin 9.9, platelet count 231. BMP showed sodium 139, potassium 3.6, chloride 106, bicarbonate 27, BUN 12, creatinine is 0.8, lactic acid level was 3.3 today morning. Phosphorous is 0.4. Magnesium is 1.7. CURRENT INPATIENT MEDICATIONS: The patient's medications were all reviewed by myself. I have order K-phos 30 millimole IV times one dose. She continues to be on Bicitra and potassium. No other significant change in the medications as compared with yesterday. ASSESSMENT AND PLAN: 1. Acute renal failure the patient's renal function has recovered. Creatinine is less than 1 now. She still has electrolyte abnormalities which are being managed as mentioned below. 2. Hypokalemia it is controlled with current dose of potassium chloride 40 mEq p.o. twice daily. 3. Metabolic acidosis the patient continues to be on Bicitra and bicarbonate level is within the acceptable range now. 4. Hypophosphatemia the patient's with given 30 millimole of potassium phosphate today morning. 5. Hypomagnesemia - The patient has been started on magnesium oxide 400 mg p.o. twice daily. 6. Lactic acidosis Unknown etiology. Most likely it is type A lactic acidosis associated with wound and infection in the groin.
[2021-03-18] MEDS: AUGMENTIN 500 MG TAB PO SCH ×3 (05:51→21:35)
[2021-03-18] MEDS: HEPARIN SOD (PORCINE) 5000UNITS/ML 1ML VIAL/SYRINGE SC SCH ×3 (05:51→21:36)
[2021-03-18 06:33] LABS: BASO % 0.2 % (0.0-1.0); EOS # 0.1 10^3/uL (0.0-0.5); EOS % 1.7 % (0.0-3.0); HEMOGLOBIN 9.7 g/dl (12.0-15.5); LYMPH # 1.5 10^3/uL (1.5-5.0); MEAN CORPUSCULAR HEMOGLOBIN 23.9 pg (27.0-33.0); MEAN CORPUSCULAR HGB CONC 31.3 g/dl (32.0-36.5); MEAN CORPUSCULAR VOLUME 76.4 fl (80.0-96.0); MONO # 0.4 10^3/uL (0.0-0.8); MONO % 8.1 % (2.0-8.0); NEUTROPHILS # 3.1 10^3/uL (1.5-8.5); NEUTROPHILS % 57.4 % (36.0-66.0); PLATELET COUNT, AUTOMATED 207 10^3/uL (150-450); RED BLOOD COUNT 4.06 10^6/uL (4.00-5.40); WHITE BLOOD COUNT 5.3 10^3/uL (4.0-10.0)
[2021-03-18 07:13] LABS: ALBUMIN 2.4 GM/DL (3.2-5.2); ALT/SGPT 47 U/L (12-78); BILIRUBIN,TOTAL 0.6 MG/DL (0.2-1.0); BLOOD UREA NITROGEN 11 MG/DL (7-18); CALCIUM LEVEL 7.5 MG/DL (8.5-10.1); CARBON DIOXIDE LEVEL 27 MEQ/L (21-32); CHLORIDE LEVEL 106 MEQ/L (98-107); GLOMERULAR FILTRATION RATE > 60.0 (>58); GLUCOSE, FASTING 84 MG/DL (70-100); MAGNESIUM LEVEL 1.6 MG/DL (1.8-2.4); POTASSIUM SERUM 4.5 MEQ/L (3.5-5.1); SODIUM LEVEL 141 MEQ/L (136-145); TOTAL PROTEIN 5.7 GM/DL (6.4-8.2)
[2021-03-18] MEDS: MAG SULF 1GM/100ML (MAG RUN) 1 GM in IV 1 EA IV SCH ×2 (08:53→10:20)
[2021-03-18] MEDS: BICITRA 30ML SOLN UDC PO SCH (08:53)
[2021-03-18] MEDS: NEUTRA-PHOS 1.5 GM PACKET PO SCH ×4 (08:53→21:34)
[2021-03-18] MEDS: POTASSIUM CHLORIDE 10 MEQ SR TABLET PO SCH (08:53)
[2021-03-18] MEDS: FOLIC ACID 1 MG TAB PO SCH (08:53)
[2021-03-18] MEDS: MULTIVITAMINS/MINERALS THERAP 1 TAB PO SCH (08:53)
[2021-03-18] MEDS: DOCUSATE SODIUM 100MG CAPSULE PO SCH ×2 (08:53→21:00)
[2021-03-18] MEDS: THIAMINE 100 MG TAB PO SCH (08:54)
[2021-03-18] MEDS: DOXYCYCLINE HYCLATE 100MG TABLET PO SCH ×2 (08:54→17:34)
[2021-03-18] MEDS: MAGNESIUM OXIDE 400MG TAB (MAG-OX) PO SCH ×2 (11:37→21:35)
[2021-03-18] MEDS ORDERED: SODIUM PHOSPHATE INJ 30 MMOL in D5W 500 ML IV ONE (12:00)
[2021-03-18 13:04] LABS: PTH INTACT 104.9 PG/ML (18.5-88.0); TOTAL 25(OH) VITAMIN D 8.3 NG/ML (30.0-100.0)
--- NOTE | 2021-03-18 13:13 | IPN ---
NEPHROLOGY PROGRESS NOTE DATE: 03/18/2021 SUBJECTIVE: Kenisha is seen and examined sitting out of bed to the chair. She denies any complaints, specifically denies any abdominal pain, nausea, vomiting, or shortness of breath. She has some persistent electrolyte abnormalities including hypophosphatemia and hypomagnesemia for which she is receiving supplementation. Her metabolic acidosis has completely resolved and I am cutting down the Bicitra dose. OBJECTIVE: VITAL SIGNS: Temperature is 97.4, pulse 103, respiratory rate 20, blood pressure 139/88, saturating 99% on room air. INTAKE AND OUTPUT: Intake yesterday was 1.4 liters. Weight in the bed scale today is not recorded. GENERAL APPEARANCE: The patient is seen sitting out of bed to the chair, middle aged female, awake, alert, oriented, in no apparent distress. HEENT: The extraocular muscles are intact. Pupils are around and reactive to light. Tongue is moist. NECK: Supple. Jugular veins are not elevated. HEART: Regular. S1, S2. There is no leg edema. LUNGS: Symmetric air entry. No crackles, rales or wheeze. She comfortable on room air. ABDOMEN: Soft. There is a large supraumbilical hernia which is very prominent and nontender. NEUROLOGICAL: No focal deficits. She is cooperative with physical exam and appears to be at baseline mentation. LABORATORY STUDIES: Sodium 141, potassium 4.5, bicarbonate 27, BUN 11, creatinine 0.7, lactic acid 4.3, magnesium 1.6, phosphorous 1.0. Hemoglobin 9.7, platelet count 207. CURRENT INPATIENT MEDICATIONS: I cut the Bicitra down to 20 mL daily. The Primary Team gave a dose of 30 millimole sodium phosphate. Her magnesium was increased to 800 mg p.o. twice daily. I stopped the potassium chloride because she is now on Neutra-Phos 2 packets four times daily. PROBLEMS: 1. Status post hypokalemia - The patient has been receiving aggressive potassium supplementation. Her potassium is up to 4.5 now. I note that she was started on Neutra-Phos 2 packets four times daily today (which does have a significant potassium content, hence I am stopping the potassium chloride 40 mEq p.o. twice daily). 2. Hypophosphatemia she is receiving a dose of 30 millimole sodium phosphate today. Yesterday she received potassium phosphate. She is also on Neutra-Phos 2 packets four times daily. I have also asked her to drink Pepsi because it is rich in phosphorous. I will also check a vitamin D level and a parathyroid hormone level. 3. Hypomagnesemia she is receiving oral magnesium supplementation. 4. Iron deficiency anemia she has received several doses of IV iron on this admission. 5. Lactic acidosis, etiology is uncertain, has been persistently fluctuating between 2.6 and low 4's we will see how her lactic trends after she has had adequate electrolyte repletion. I wonder if there is any relation of her impressive hernia to the persistent lactic acidosis ... unfortunately there are no prior [facility] lab records to see if this is lactic acidosis is a chronic condition of the pt vs acute. I am stopping her Citrate supplement (bicitra) as I wonder if that citrate is causing increased lactate. MTDD
[2021-03-18 14:00] VITALS: BP 135/91
--- NOTE | 2021-03-18 16:52 | IPNPDOC ---
Text Note Date of Service The patient was seen on 03/18/21. NOTE Subjective: Patient was examined at bedside today morning. she denies having any complaints. She reports having a good night sleep. She denies any chest pain, shortness of breath, umbilical pain, dysuria, constipation/diarrhea, she reports her itching in the wound [intra-abdominal folds] has improved. Objective: General: Patient is alert oriented x3, sitting in chair, no apparent distress. Cardiac: S1-S2 normal no murmurs appreciated. Respiration: Clear bilateral breath sounds appreciated, no rhonchi or wheezes. Abdomen: Other than the big ventral hernia which is nonreducible, soft, positive bowel sounds, no tenderness to palpation over the hernia or laterally. Extremities: No clubbing no cyanosis noted. No pitting edema. Skin: She does have intertrigo rash in her abdominal folds. Imaging: Portable CXR 03/11: No acute cardiopulmonary process appreciated. Head CT 03/11: No acute intracranial abnormality. Abdomen / Pelvis CT 03/11: 1. Large midline ventral hernia located just above the umbilicus, which contains a portion of the mid transverse colon and loops of small bowel. No bowel strangulation or obstruction. 2. Submucosal fat deposition in the wall of the cecum and ascending colon, which may be the sequela of a prior colitis or may be related to obesity. 3. Colonic diverticulosis without evidence for diverticulitis. 4. Fluid fluid level in the gallbladder with higher attenuation material layering in the dependent portion of the gallbladder, which may represent biliary sludge. 5. Fibroid uterus. 6. No abscess in the abdomen or pelvis. Renal US 03/12 Echogenic kidneys, suggesting chronic medical renal disease, without other demonstrated abnormality. Vascular US 03/12: 1. There is mild plaque with Doppler evidence of less than 50% carotid artery stenosis on the right. This is on the basis of peak internal carotid artery systolic velocity and peak ICA/CCA systolic velocity ratio. 2. There is mild plaque with Doppler evidence of less than 50% carotid artery stenosis on the left. This is on the basis of peak internal carotid artery systolic velocity and peak ICA/CCA systolic velocity ratio. 3. Antegrade vertebral artery flow bilaterally. Pelvic US 03/12: 1. 1.4 cm vascular lesion along the endometrium, likely polyp. Recommend further gynecologic evaluation. 2. 5.0 cm subserosal uterine fibroid. 3. Unremarkable ovaries. Chest x-ray done on 03/13/2021: Reported as: No acute cardiopulmonary changes. ECHO 03/13: Sinus tachycardia without intraventricular conduction disturbance. Challenging study in light of the patient's body habitus, but diagnostically useful information was still obtained. M-mode and 2-dimensional echocardiography was performed with pulse, continuous wave, color flow, and tissue Doppler studies. Normal left ventricular size, wall thickness and hyperkinetic wall motion. Normal left atrial size and Doppler assessment of LV diastolic function and estimated mean left atrial pressure. Normal appearing right heart chamber sizes and wall motion with Doppler evidence of moderate pulmonary hypertension. Mildly dilated inferior vena cava with normal respiratory collapse in keeping with central venous pressure upper limits of normal. Normal aortic diameters. Normal appearing aortic valvular apparatus without stenosis or insufficiency. Normal appearing mitral valvular structures with no inflow tract obstruction and no more than trace insufficiency. Normal appearing tricuspid valve with very mild insufficiency. No apparent intracardiac mass or pericardial effusion. Assessment: 40-year-old female patient with no significant past medical history presented after having a witnessed syncopal episode and was brought to the ED. In the emergency department patient was found to be in acute kidney injury, metabolic acidosis, lactic acidosis and hypokalemia. Patient was admitted for further management. Plan: 1) Acute kidney injury: -Patient JAYDE has resolved creatinine today morning is 0.7 - Avoid nephrotoxic medication. -Nephrology is following this patient and treating her JAYDE. Fluid and Lasix administration as per nephrology. 2. Metabolic acidosis: -Bicarbonate has normalized. Resolution of her metabolic acidosis. 3. Lactic acidosis: Unclear etiology - No signs of overt system infection; does not have any fever, elevated white count. - Patient thiamine level is still pending. 4. Abnormal electrolytes: -Patient has low phosphorus and low mag levels which have been replaced IV and orally. 5. Intertrigo: -We will continue patient on doxycycline and Augmentin today would be day6. - her wounds are being treated with vashe and interdry -Today patient's wound a lot better and have been resolving. 6. Syncopal episode: -Likely due to her vomiting and dehydration. Echo as above and will continue telemetry 7. Obesity: -Complicating medical care 8. DVT prophylaxis: -We will continue heparin SQ. Disposition: Possible discharge tomorrow VS,Fishbone, I+O VS, Fishbone, I+O Laboratory Tests 03/18/21 06:08 Vital Signs Date Time Temp Pulse Resp B/P (MAP) Pulse Ox O2 Delivery O2 Flow Rate FiO2 03/18/21 14:00 98.3 112 16 135/91 (106) 99 Room Air I&O- Last 24 Hours up to 6 AM 03/18/21 06:00 Intake Total 1610 ml Output Total 250 ml Balance 1360 ml GME ATTESTATION GME ATTESTATION My faculty preceptor for this patient encounter was physically present during the encounter and was fully available. All aspects of the patient interview, examination, medical decision making process, and medical care plan development were reviewed and approved by the faculty preceptor. The faculty preceptor is aware and concurs with the plan as stated in the body of this note and will attest to such by his/her cosignature. ATTENDING NOTE I, Kale Zambrano, have independently examined this patient and performed my own physical exam, as well as reviewed the documentation and edited where necessary. I have discussed in detail with the resident / student the findings and plan of treatment as documented by the resident / student and edited their note. I agree with their findings and treatment plan and have edited their documentation. I will continue to follow the patient during this hospital stay. Gale De La Vega MD Mar 18, 2021 16:52 KALE ZAMBRANO MD Mar 18, 2021 17:14
[2021-03-18 22:00] VITALS: BP 138/93
[2021-03-19 06:00] VITALS: BP 137/87
[2021-03-19] MEDS: AUGMENTIN 500 MG TAB PO SCH ×2 (06:17→13:12)
[2021-03-19] MEDS: HEPARIN SOD (PORCINE) 5000UNITS/ML 1ML VIAL/SYRINGE SC SCH ×2 (06:18→13:14)
[2021-03-19 06:37] LABS: BASO % 0.2 % (0.0-1.0); EOS # 0.1 10^3/uL (0.0-0.5); EOS % 2.2 % (0.0-3.0); HEMATOCRIT 27.5 % (36.0-47.0); HEMOGLOBIN 8.5 g/dl (12.0-15.5); LYMPH # 1.2 10^3/uL (1.5-5.0); LYMPH % 29.6 % (24.0-44.0); MEAN CORPUSCULAR HEMOGLOBIN 23.5 pg (27.0-33.0); MEAN CORPUSCULAR HGB CONC 30.9 g/dl (32.0-36.5); MONO # 0.4 10^3/uL (0.0-0.8); NEUTROPHILS # 2.3 10^3/uL (1.5-8.5); PLATELET COUNT, AUTOMATED 188 10^3/uL (150-450); RED BLOOD COUNT 3.62 10^6/uL (4.00-5.40); WHITE BLOOD COUNT 4.1 10^3/uL (4.0-10.0)
[2021-03-19 07:02] LABS: ALBUMIN 2.3 GM/DL (3.2-5.2); ALT/SGPT 50 U/L (12-78); BILIRUBIN,TOTAL 0.5 MG/DL (0.2-1.0); BLOOD UREA NITROGEN 10 MG/DL (7-18); CALCIUM LEVEL 6.8 MG/DL (8.5-10.1); CARBON DIOXIDE LEVEL 27 MEQ/L (21-32); CHLORIDE LEVEL 104 MEQ/L (98-107); CREATININE FOR GFR 0.61 MG/DL (0.55-1.30); GLOMERULAR FILTRATION RATE > 60.0 (>58); GLUCOSE, FASTING 81 MG/DL (70-100); MAGNESIUM LEVEL 1.7 MG/DL (1.8-2.4); POTASSIUM SERUM 4.1 MEQ/L (3.5-5.1); SODIUM LEVEL 138 MEQ/L (136-145)
[2021-03-19] MEDS ORDERED: VITAMIN D 50,000 UNITS CAPSULE (ERGOCALCIFEROL 1.25MG) PO SCH (09:00)
[2021-03-19] MEDS: THIAMINE 100 MG TAB PO SCH (09:12)
[2021-03-19] MEDS: FOLIC ACID 1 MG TAB PO SCH (09:12)
[2021-03-19] MEDS: MULTIVITAMINS/MINERALS THERAP 1 TAB PO SCH (09:12)
[2021-03-19] MEDS: NEUTRA-PHOS 1.5 GM PACKET PO SCH ×2 (09:12→13:13)
[2021-03-19] MEDS: DOXYCYCLINE HYCLATE 100MG TABLET PO SCH (09:12)
[2021-03-19] MEDS: DOCUSATE SODIUM 100MG CAPSULE PO SCH (09:12)
[2021-03-19 10:42] LABS: PHOSPHORUS LEVEL 3.9 MG/DL (2.5-4.9)
[2021-03-19] MEDS ORDERED: BICITRA 30ML SOLN UDC PO SCH (12:30)
[2021-03-19] MEDS ORDERED: DOXY100T PO (12:49)
[2021-03-19] MEDS ORDERED: FOLI1TAB11 PO (12:49)
[2021-03-19] MEDS ORDERED: THIA100TA PO (12:49)
[2021-03-19] MEDS ORDERED: VITMTA PO (12:49)
[2021-03-19] MEDS ORDERED: NEUTPW PO (12:49)
[2021-03-19] MEDS ORDERED: MAGN400T2 PO (12:49)
[2021-03-19] MEDS ORDERED: AMOX500T2 PO (12:49)
[2021-03-19] MEDS: MAGNESIUM OXIDE 400MG TAB (MAG-OX) PO SCH (13:13)
--- NOTE | 2021-03-19 17:32 | IPN ---
PROGRESS NOTE DATE: 03/19/2021 SUBJECTIVE: Kenisha is seen and examined this morning at the bedside. She denies any complaints. She is discharge pending. She tells me she lives alone, and she manages her medications and appointments by herself and is able to drive herself to appointments. I advised her to come to the nephrology office for a followup for a repeat check on her electrolytes, and I discussed the discharge electrolyte supplementation with Dr. Inman. There were no acute overnight events. Temperature 98.0, pulse 92, respiratory rate 17, blood pressure 137/87, saturating 97%-99% on room air. Intake yesterday was 2.3 liters. Weight in the bed scale today is not recorded. GENERAL: Patient seen sitting in the chair, awake, alert, oriented, comfortable in no distress. Extraocular muscles are intact. Tongue is moist. Neck is supple. Jugular veins are not elevated. HEART: Sounds are regular, S1, S2. No edema. LUNGS: Clear to auscultation. No crackle or rales. ABDOMEN: Shows a big ventral hernia but otherwise no other significant findings. Soft, obese, and nontender. EXTREMITIES: No clubbing, cyanosis, or edema. NEUROLOGIC: She answers mostly with short replies but is cooperative and oriented. LABORATORY STUDIES: Lactic acid today is 1.5. Sodium 138, potassium 4.1, magnesium 1.7, phosphorus 3.9, albumin 2.3. Vitamin D was less than 10. Parathyroid hormone was 104. INPATIENT MEDICATIONS: Yesterday I started the patient on vitamin D 50,000 units once weekly, and I stopped her Bicitra. Remainder of medications is unchanged as compared to yesterday. PROBLEMS: 1. Hypophosphatemia. It has resolved. Her phosphorus levels are now acceptable. She does have low vitamin D and elevated parathyroid hormone level secondary to vitamin D deficiency. She is now on a vitamin D supplement. She received a lot of phosphorus while she was in the hospital (IV phosphorus in the form of sodium phos and potassium phos along with oral phosphorus in the form of Neutra-Phos). She can take one Neutra-Phos packet twice a day and followup in the nephrology office, and I suspect we will be able to stop phosphorus supplements at that time, but she did come to the hospital with very low phosphorus, and so I am not stopping the Neutra-Phos completely at this time. 2. Hypomagnesemia. She can take magnesium 400 mg by mouth twice a day, and she will have a repeat magnesium check in the office. 3. Status post hypokalemia. She does not need any further special potassium supplementation. 4. Lactic acidosis. The lactic acidosis, has resolved. Her lactic acid is 1.5 today. It was possibly related to use of citrate supplement, and the citrate supplements were ordered for acidosis. Her acidemia has resolved. Her bicarbonate is up to 27. There is no need for any further citrate supplementation. 5. Iron deficiency anemia. Patient's transferrin saturation was only 11%. She was given intravenous (IV) iron on this admission. She can continue with oral iron supplement. 6. Vitamin D deficiency. She is now on a vitamin D supplement. DISPOSITION: Patient is stable for discharge with followup in the nephrology office within the next 10 days.
--- NOTE | 2021-03-19 18:54 | DS.PDOC ---
Discharge Summary General Date of Admission Mar 11, 2021 at 17:00 Date of Discharge March 19, 2021 Attending Physician: HERNESTO GAN MD Discharge Summary PROCEDURES PERFORMED DURING STAY: None. ADMITTING DIAGNOSES: Syncope and sepsis Acute renal failure intertrigo in abdominal folds Obesity Intellectual disability Huge non-strangulated ventral hernia DISCHARGE DIAGNOSES: Obesity Intellectual disability Huge non-strangulated ventral hernia COMPLICATIONS/CHIEF COMPLAINT: Acute Renal Failure, Sepsi. HISTORY OF PRESENT ILLNESS: 39-year-old female with no known past medical hist ory was brought in by EMS for witnessed syncope episode. In the ED further investigation showed that she had elevated white count and severe hypokalemia and was in JAYDE with creatinine of 6.72 and had elevated anion gap, lactic acidosis and pH of 7.5. She was admitted to the hospital for further management and evaluation. HOSPITAL COURSE: Hospital course day 1 Sepsis secondary to unknown source - WBC 18.9. Tachycardi. T 100.2. LA 4.0 - s/p 2L NS bolus. Blood cultures sent - started on empiric vancomycin and cefepime, with renal dosage - patient denies neck pain, chest pain, cough, dysuria - noted to have streaks of dried blood on legs - perineal exam showed extensive skin maceration with erythema, mucopurulent DC in folds of skin between torso and thigh, as well as satellite lesions - suspect cellulitis as possible source - CT abdo pelvis showed no pelvic abscess - patient did not spontaneously void, I ordered keys to be placed to monitor UOP. 300 cc of yann urine drained. - UA sent. Poisitive for blood, WBC, RBC, 3+ protein. Negative for LE and nitrite - urine culture sent. Acute renal failure - patient denies reduced PO intake - Cr 6.57, in ER. - was given endorsement that patient has been making urine - per RN, no UOP has been made - ordered keys catheter to be placed - ordered renal US - check urine lytes - check CPK - D/w Dr. Shields. C/w IVF. No need for urgent dialysis. Consult placed. Cellulitis with intertrigo - started empiric vancomycin and cefepime - topical ketoconazole cream - diflucan once time dose 150 mg PO Hospital course day 7: 1) Acute kidney injury: -Patient JAYDE has resolved creatinine today morning is 0.7 - Avoid nephrotoxic medication. -Nephrology is following this patient and treating her JAYDE. Fluid and Lasix administration as per nephrology. 2. Metabolic acidosis: -Bicarbonate has normalized. Resolution of her metabolic acidosis. 3. Lactic acidosis: Unclear etiology - No signs of overt system infection; does not have any fever, elevated white count. - Patient thiamine level is still pending. -On the day of discharge patient's lactate is back to normal 4. Abnormal electrolytes: -Patient has low phosphorus and low mag levels which have been replaced IV and orally. 5. Intertrigo: -We will continue patient on doxycycline and Augmentin today would be day6. - her wounds are being treated with vashe and interdry -Today patient's wound a lot better and have been resolving. DISCHARGE MEDICATIONS: Please see below. ALLERGIES: Please see below. PHYSICAL EXAMINATION ON DISCHARGE: VITAL SIGNS: Please see below. General: Patient is alert oriented x3, sitting in chair, no apparent distress. Cardiac: S1-S2 normal no murmurs appreciated. Respiration: Clear bilateral breath sounds appreciated, no rhonchi or wheezes. Abdomen: Other than the big ventral hernia which is nonreducible, soft, positive bowel sounds, no tenderness to palpation over the hernia or laterally. Extremities: No clubbing no cyanosis noted. No pitting edema. Skin: Patient's rash in her abdominal fold has improved. LABORATORY DATA: Please see below. IMAGING:Portable CXR 03/11: No acute cardiopulmonary process appreciated. Head CT 03/11: No acute intracranial abnormality. Abdomen / Pelvis CT 03/11: 1. Large midline ventral hernia located just above the umbilicus, which contains a portion of the mid transverse colon and loops of small bowel. No bowel stran gulation or obstruction. 2. Submucosal fat deposition in the wall of the cecum and ascending colon, which may be the sequela of a prior colitis or may be related to obesity. 3. Colonic diverticulosis without evidence for diverticulitis. 4. Fluid fluid level in the gallbladder with higher attenuation material layering in the dependent portion of the gallbladder, which may represent biliary sludge. 5. Fibroid uterus. 6. No abscess in the abdomen or pelvis. Renal US 03/12 Echogenic kidneys, suggesting chronic medical renal disease, without other demonstrated abnormality. Vascular US 03/12: 1. There is mild plaque with Doppler evidence of less than 50% carotid artery stenosis on the right. This is on the basis of peak internal carotid artery systolic velocity and peak ICA/CCA systolic velocity ratio. 2. There is mild plaque with Doppler evidence of less than 50% carotid artery stenosis on the left. This is on the basis of peak internal carotid artery systolic velocity and peak ICA/CCA systolic velocity ratio. 3. Antegrade vertebral artery flow bilaterally. Pelvic US 03/12: 1. 1.4 cm vascular lesion along the endometrium, likely polyp. Recommend further gynecologic evaluation. 2. 5.0 cm subserosal uterine fibroid. 3. Unremarkable ovaries. Chest x-ray done on 03/13/2021: Reported as: No acute cardiopulmonary changes. ECHO 03/13: Sinus tachycardia without intraventricular conduction disturbance. Challenging study in light of the patient's body habitus, but diagnostically useful information was still obtained. M-mode and 2-dimensional echocardiography was performed with pulse, continuous wave, color flow, and tissue Doppler studies. Normal left ventricular size, wall thickness and hyperkinetic wall motion. Normal left atrial size and Doppler assessment of LV diastolic function and estimated mean left atrial pressure. Normal appearing right heart chamber sizes and wall motion with Doppler evidence of moderate pulmonary hypertension. Mildly dilated inferior vena cava with normal respiratory collapse in keeping with central venous pressure upper limits of normal. Normal aortic diameters. Normal appearing aortic valvular apparatus without stenosis or insufficiency. Normal appearing mitral valvular structures with no inflow tract obstruction and no more than trace insufficiency. Normal appearing tricuspid valve with very mild insufficiency. No apparent intracardiac mass or pericardial effusion. PROGNOSIS: Good ACTIVITY: As tolerated. DIET: Regular diet DISCHARGE PLAN: Home DISPOSITION: 01 Home, Self-Care. DISCHARGE INSTRUCTIONS: 1. Patient need to follow-up with PCP in 3 to 5 days. 2. Patient needs to have an appointment with surgery for her hernia repair. 3. Patient needs to follow-up with nephrology clinic and 1 week 4. Continue taking antibiotics amoxicillin and oxacillin for 5 more days. 5. Patient is being sent home on on magnesium, multivitamin, potassium, thiamine supplementation. ITEMS TO FOLLOWUP ON ON OUTPATIENT: -Follow-up with PCP in 3 to 5 days -Need an appointment with surgery for hernia repair -Follow-up with nephrology in clinic in 1 week for checking of the electrolytes levels. DISCHARGE CONDITION: Stable. TIME SPENT ON DISCHARGE: 35 minutes Attending Attestation: I saw and evaluated patient. I agree with the finding and plan of care as documented in the residents note. Vital Signs/I&Os Vital Signs Date Time Temp Pulse Resp B/P (MAP) Pulse Ox O2 Delivery O2 Flow Rate FiO2 03/19/21 06:00 98.0 92 17 137/87 (104) 97 Room Air I&O- Last 24 Hours up to 6 AM 03/19/21 06:00 Intake Total 2390 ml Output Total 350 ml Balance 2040 ml Laboratory Data Labs 24H Laboratory Tests 2 03/19/21 06:05: Immature Granulocyte % (Auto) 2.0, Neutrophils (%) (Auto) 57.0, Lymphocytes (%) (Auto) 29.6, Monocytes (%) (Auto) 9.0H, Eosinophils (%) (Auto) 2.2, Basophils (%) (Auto) 0.2, Neutrophils # (Auto) 2.3, Lymphocytes # (Auto) 1.2L, Monocytes # (Auto) 0.4, Eosinophils # (Auto) 0.1, Basophils # (Auto) 0.0, Nucleated Red Blood Cells % (auto) 0.0, Anion Gap 7L, Glomerular Filtration Rate > 60.0, Calcium Level 6.8L, Phosphorus Level 3.9#, Magnesium Level 1.7L, Total Bilirubin 0.5, Aspartate Amino Transf (AST/SGOT) 48H, Alanine Aminotransferase (ALT/SGPT) 50, Alkaline Phosphatase 40L, Total Protein 5.0L, Albumin 2.3L, Albumin/Globulin Ratio 0.9L 03/19/21 09:29: Lactic Acid Level 3.6*H 03/19/21 13:44: Lactic Acid Followup at 4 Hours 1.5 CBC/BMP Laboratory Tests 03/19/21 06:05 Microbiology Microbiology 03/12/21 Blood Culture - Final, Complete NO GROWTH AFTER 5 DAYS 03/12/21 Urine Culture - Final, Complete 03/11/21 Blood Culture - Final, Complete NO GROWTH AFTER 5 DAYS Discharge Medications Scheduled Amoxicillin/Potassium Clav (Amox-Clav 500-125 mg Tablet) 1 Each Tablet, 500 MG PO Q8H Doxycycline Hyclate (Doxycycline Hyclate) 100 Mg Tablet, 100 MG PO BIDPC Folic Acid (Folic Acid) 1 Mg Tablet, 1 MG PO DAILY Magnesium Oxide (Magnesium Oxide) 400 Mg Tablet, 400 MG PO BID@1200,2100 Multivitamins (Thera M Plus Tablet) 1 Each Tablet, 1 TAB PO DAILY Potassium Phos/Sodium Phos (Phos-Nak Packet) 1 Each Powd.pack, 1 PKT PO BID Thiamine Hcl (Vitamin B-1) 100 Mg Tablet, 100 MG PO DAILY Scheduled PRN Albuterol Sulfate (Proair Hfa) 8.5 Gm Hfa.aer.ad, 2 PUFF INH Q4H PRN for SOB/WHEEZING, (Reported) Allergies Coded Allergies: No Known Allergies (Unverified , 03/11/21) Gale De La Vega MD Mar 19, 2021 18:54 HERNESTO GAN MD Mar 20, 2021 06:49
== END 2021-03-19 14:34 | disposition home or self-care (01) | DRG 683 ==
LOC: EDBD 16:59 → M ED 16:59 → EEVIPCON 17:00 → M ED INP 17:00 → ENRESERV 03-12 02:01 → M PCU 03-12 03:41 → M MSPAV 03-16 18:14
PROVIDERS: ADMIT Family Medicine; ATTEND Internal Medicine
DX: N17.0 Acute kidney failure with tubular necrosis (principal); L03.315 Cellulitis of perineum; E87.2 Acidosis; Z68.41 Body mass index [BMI] 40.0-44.9, adult; R55 Syncope and collapse; E87.6 Hypokalemia; K43.9 Ventral hernia without obstruction or gangrene; L30.4 Erythema intertrigo; K57.90 Diverticulosis of intestine, part unspecified, without perforation or abscess without bleeding; F79 Unspecified intellectual disabilities; E66.9 Obesity, unspecified; R73.9 Hyperglycemia, unspecified; D25.2 Subserosal leiomyoma of uterus; E86.0 Dehydration; R11.10 Vomiting, unspecified; L98.499 Non-pressure chronic ulcer of skin of other sites with unspecified severity; E83.39 Other disorders of phosphorus metabolism; E83.42 Hypomagnesemia; D50.9 Iron deficiency anemia, unspecified; B95.62 Methicillin resistant Staphylococcus aureus infection as the cause of diseases classified elsewhere; Z20.822 Contact with and (suspected) exposure to COVID-19

== ENCOUNTER → 2021-03-27 | Outpatient (REF) | payer OTHER ==
[~2021-03-27] MED LIST: AMOX500T2 PO; DOXY100T PO; FOLI1TAB11 PO; MAGN400T2 PO; NEUTPW PO; PROAAER10 INH; THIA100TA PO; VITMTA PO
== END ==
LOC: M LAB REF 10:13
PROVIDERS: ATTEND Physician Assistant Medical
DX: R74.02 Elevation of levels of lactic acid dehydrogenase [LDH] (principal)

== ENCOUNTER → 2021-03-29 | Outpatient (REF) | payer OTHER | LOC: M LAB REF 17:42 | PROVIDERS: ATTEND Internal Medicine Nephrology | DX: E83.42 Hypomagnesemia (principal) ==

== ENCOUNTER → 2021-04-29 | Outpatient (REF) | payer OTHER | LOC: M LAB REF 17:18 | PROVIDERS: ATTEND Internal Medicine Nephrology | DX: E83.42 Hypomagnesemia (principal) ==

== ENCOUNTER → 2021-10-30 | Outpatient (REF) | payer OTHER ==
[2021-10-30 17:35] LABS: PERCENT SATURATION 4.4 % (13.2-45.0)
[2021-10-30 17:59] LABS: BACTERIA, URINE AUTO NEGATIVE (NEGATIVE); MUCUS, URINE SMALL (NEGATIVE); RBC, URINE AUTO 1 /HPF (0-3); SQUAMOUS EPITHELIAL CELL UR AU 1 /HPF (0-6); WBC, URINE AUTO 2 /HPF (0-3)
== END ==
LOC: M LAB REF 17:00
PROVIDERS: ATTEND Internal Medicine Nephrology
DX: D50.9 Iron deficiency anemia, unspecified (principal)

== ENCOUNTER 2021-12-17 07:37 | Outpatient (CLI) | payer OTHER ==
[~2021-12-17] VITALS: Ht 165.1 cm; Wt 125.2 kg
[~2021-12-17 07:37] MED LIST changes: +ALBUTEROL SULFATE 2.5 MG/0.5 ML INH NEB SOLN INH PRN; +EPINEPHrine INJ 1 MG/ML 1ML AMP IM PRN; +FERRIC CARBOXYMALTOSE INJ 750 MG, VIAL MATE ADAPTER 1 EACH in NS 250 ML IV ONE; +NS 1,000 ML IV SCH; +diphenhydrAMINE 50MG/ML VIAL (J1200) IV PRN; +methylPREDNISolone 125MG 2ML VIAL IV PRN
[2021-12-17] MEDS ORDERED: NS 1,000 ML IV SCH (08:00)
[2021-12-17] MEDS ORDERED: FERRIC CARBOXYMALTOSE INJ 750 MG, VIAL MATE ADAPTER 1 EACH in NS 250 ML IV ONE (08:00)
[2021-12-17 08:10] VITALS: BP 163/86
[2021-12-17 09:18] VITALS: BP 169/86
== END 2021-12-17 09:20 | disposition home or self-care (01) ==
LOC: M INFU 07:37
PROVIDERS: ATTEND Internal Medicine Nephrology
DX: E61.1 Iron deficiency (principal)
CPT/HCPCS: 96365; J1439

== ENCOUNTER → 2022-04-29 | Outpatient (REF) | payer OTHER ==
[~2022-04-29] MED LIST changes: -ALBUTEROL SULFATE 2.5 MG/0.5 ML INH NEB SOLN INH PRN; -EPINEPHrine INJ 1 MG/ML 1ML AMP IM PRN; -FERRIC CARBOXYMALTOSE INJ 750 MG, VIAL MATE ADAPTER 1 EACH in NS 250 ML IV ONE; -NS 1,000 ML IV SCH; -diphenhydrAMINE 50MG/ML VIAL (J1200) IV PRN; -methylPREDNISolone 125MG 2ML VIAL IV PRN
== END ==
LOC: M LAB REF 17:01
PROVIDERS: ATTEND Nurse Practitioner Family
DX: D50.9 Iron deficiency anemia, unspecified (principal)

== ENCOUNTER → 2023-05-01 | Outpatient (REF) | payer OTHER ==
[2023-05-01 19:02] LABS: PERCENT SATURATION 3.9 % (13.2-45.0)
[2023-05-01 19:05] LABS: FERRITIN 13.7 NG/ML (7.3-270.7)
[2023-05-01 19:13] LABS: BACTERIA, URINE AUTO NEGATIVE (NEGATIVE); RBC, URINE AUTO 5 /HPF (0-3); SQUAMOUS EPITHELIAL CELL UR AU 3 /HPF (0-6); WBC, URINE AUTO 1 /HPF (0-3)
== END ==
LOC: M LAB REF 17:19
PROVIDERS: ATTEND Nurse Practitioner Family
DX: D50.9 Iron deficiency anemia, unspecified (principal); N39.0 Urinary tract infection, site not specified; R31.29 Other microscopic hematuria

== ENCOUNTER 2023-05-29 14:31 | Outpatient (CLI) | payer OTHER ==
[~2023-05-29] VITALS: Ht 165.1 cm; Wt 126.1 kg
[~2023-05-29 14:31] MED LIST changes: +ALBUTEROL SULFATE 2.5MG/0.5ML INH NEB SOLN INH PRN; +EPINEPHrine INJ 1 MG/ML 1ML AMP IM PRN; +diphenhydrAMINE 50MG/ML VIAL IV PRN; +methylPREDNISolone 125MG 2ML VIAL IV PRN
[2023-05-29 14:40] VITALS: BP 182/92; O2SAT 99
[2023-05-29] MEDS ORDERED: NS 1,000 ML IV SCH (15:00)
[2023-05-29] MEDS ORDERED: FERRIC CARBOXYMALTOSE INJ 750 MG in NS 250 ML (>50kg) IV ONE ×3 (15:00)
[2023-05-29 16:15] VITALS: BP 133/74; O2SAT 97
== END 2023-05-29 16:20 | disposition home or self-care (01) ==
LOC: M INFU 14:31
PROVIDERS: ATTEND Nurse Practitioner Family
DX: D50.9 Iron deficiency anemia, unspecified (principal)
CPT/HCPCS: 96365; J1439

== ENCOUNTER → 2024-04-27 | Outpatient (REF) | payer OTHER ==
[~2024-04-27] MED LIST changes: -ALBUTEROL SULFATE 2.5MG/0.5ML INH NEB SOLN INH PRN; -EPINEPHrine INJ 1 MG/ML 1ML AMP IM PRN; -diphenhydrAMINE 50MG/ML VIAL IV PRN; -methylPREDNISolone 125MG 2ML VIAL IV PRN
[2024-04-27 18:49] LABS: BACTERIA, URINE AUTO NEGATIVE (NEGATIVE); MUCUS, URINE MODERATE (NEGATIVE); RBC, URINE AUTO 0 /HPF (0-3); SQUAMOUS EPITHELIAL CELL UR AU 2 /HPF (0-6)
[2024-05-03 09:03] LABS: WBC, URINE AUTO 0 /HPF (0-3)
== END ==
LOC: M LAB REF 16:52
PROVIDERS: ATTEND Nurse Practitioner Family
DX: R31.29 Other microscopic hematuria (principal)

== ENCOUNTER → 2024-06-23 | Outpatient (REF) | payer OTHER ==
[2024-06-23 14:01] LABS: APPEARANCE, URINE CLOUDY (CLEAR); BACTERIA, URINE AUTO NEGATIVE (NEGATIVE); BILIRUBIN, URINE AUTO NEGATIVE (NEGATIVE); BLOOD, URINE BLOOD 1+ (NEGATIVE); COLOR, URINE AMBER (YELLOW); GLUCOSE, URINE (UA) AUTO NEGATIVE (NEGATIVE); KETONE, URINE AUTO NEGATIVE (NEGATIVE); LEUKOCYTE ESTERASE, URINE AUTO NEGATIVE (NEGATIVE); MUCUS, URINE SMALL (NEGATIVE); NITRITE, URINE AUTO NEGATIVE (NEGATIVE); PROTEIN, URINE AUTO NEGATIVE (NEGATIVE); RBC, URINE AUTO 1 /HPF (0-3); SPECIFIC GRAVITY URINE AUTO 1.015 (1.002-1.035); SQUAMOUS EPITHELIAL CELL UR AU 1 /HPF (0-6); UROBILINOGEN, URINE AUTO 0.2 mg/dL (0.0-2.0); WBC, URINE AUTO 2 /HPF (0-3)
== END ==
LOC: M SMT 12:51
PROVIDERS: ATTEND Physician Assistant
DX: R31.21 Asymptomatic microscopic hematuria (principal)

== ENCOUNTER → 2024-07-08 | Outpatient (CLI) | payer OTHER ==
[2024-07-08 13:41] LABS: BLOOD UREA NITROGEN 8 MG/DL (9-23); CALCIUM LEVEL 8.9 MG/DL (8.5-10.1); CARBON DIOXIDE LEVEL 26 MMOL/L (20-31); CHLORIDE LEVEL 110 MMOL/L (98-107); CREATININE FOR GFR 0.81 MG/DL (0.55-1.30); GLOMERULAR FILTRATION RATE > 60.0 (>58); GLUCOSE, FASTING 101 MG/DL (60-100); POTASSIUM SERUM 4.1 MMOL/L (3.5-5.1); SODIUM LEVEL 141 MMOL/L (136-145)
== END ==
LOC: M PLALAB 09:31
PROVIDERS: ATTEND Physician Assistant
DX: R31.21 Asymptomatic microscopic hematuria (principal)

== ENCOUNTER → 2024-07-22 | Outpatient (CLI) | payer OTHER ==
[~2024-07-22] MED LIST changes: +ISOVUE-370 76% 100ML VIAL As Ordered ONE; +ISOVUE-370 76% 100ML VIAL ONE
== END ==
LOC: M PLAIMG 07-01 12:10 → M RAD 09:04
PROVIDERS: ATTEND Physician Assistant
DX: R31.21 Asymptomatic microscopic hematuria (principal)
CPT/HCPCS: 74178; Q9967

== ENCOUNTER → 2024-07-29 | Outpatient (REF) | payer OTHER ==
[~2024-07-29] MED LIST changes: -ISOVUE-370 76% 100ML VIAL As Ordered ONE; -ISOVUE-370 76% 100ML VIAL ONE
[2024-07-29 18:08] LABS: PERCENT SATURATION 3.9 % (13.2-45.0)
[2024-07-29 18:11] LABS: FERRITIN 11.5 NG/ML (7.3-270.7)
== END ==
LOC: M LAB REF 17:02
PROVIDERS: ATTEND Nurse Practitioner Family
DX: D50.9 Iron deficiency anemia, unspecified (principal)

== ENCOUNTER 2024-08-22 12:35 | Outpatient (CLI) | payer OTHER ==
[2024-08-22 12:35] VITALS: BP 176/88; O2SAT 97
[~2024-08-22 12:35] MED LIST changes: +ALBUTEROL SULFATE 2.5MG/0.5ML INH NEB SOLN INH PRN; +EPINEPHrine INJ 1 MG/ML 1ML AMP IM PRN; +diphenhydrAMINE 50MG/ML VIAL IV PRN; +methylPREDNISolone 125MG 2ML VIAL IV PRN
[2024-08-22] MEDS: FERRIC CARBOXYMALTOSE 750 MG (VIAL MATE) IN 100ML NS IV ONE (12:42)
[2024-08-22] MEDS ORDERED: NS 1,000 ML IV SCH (13:00)
[2024-08-22 13:15] VITALS: BP 131/79; O2SAT 96
== END 2024-08-22 13:15 ==
LOC: M INFU 12:35
PROVIDERS: ATTEND Nurse Practitioner Family
DX: D50.9 Iron deficiency anemia, unspecified (principal)
CPT/HCPCS: 96365; J1439

== ENCOUNTER 2024-08-29 11:53 | Outpatient (CLI) | payer OTHER ==
[~2024-08-29] VITALS: Ht 165.1 cm; Wt 122.7 kg
[2024-08-29 12:05] VITALS: BP 154/85; O2SAT 97
[2024-08-29] MEDS: FERRIC CARBOXYMALTOSE 750 MG (VIAL MATE) IN 100ML NS IV ONE (12:07)
[2024-08-29 12:34] VITALS: BP 140/83; O2SAT 97
[2024-08-29] MEDS ORDERED: NS (Normal Saline) 0.9% 1,000 ML IV SCH (13:00)
== END 2024-08-29 12:35 ==
LOC: M INFU 11:53
PROVIDERS: ATTEND Nurse Practitioner Family
DX: D50.9 Iron deficiency anemia, unspecified (principal)
CPT/HCPCS: 96365; J1439

== ENCOUNTER → 2025-01-12 | Outpatient (REF) | payer OTHER ==
[~2025-01-12] MED LIST changes: -ALBUTEROL SULFATE 2.5MG/0.5ML INH NEB SOLN INH PRN; -EPINEPHrine INJ 1 MG/ML 1ML AMP IM PRN; -diphenhydrAMINE 50MG/ML VIAL IV PRN; -methylPREDNISolone 125MG 2ML VIAL IV PRN
[2025-01-12 19:17] LABS: PERCENT SATURATION 6.4 % (13.2-45.0)
[2025-01-12 19:18] LABS: FERRITIN 21.4 NG/ML (7.3-270.7)
== END ==
LOC: M LAB REF 17:26
PROVIDERS: ATTEND Internal Medicine
DX: D64.9 Anemia, unspecified (principal)

== ENCOUNTER → 2025-04-13 | Outpatient (REF) | payer OTHER ==
[2025-04-13 15:19] LABS: IRON (FE) 23.0 UG/DL (50-170); PERCENT SATURATION 5.4 % (13.2-45.0)
[2025-04-14 14:26] LABS: TOTAL 25(OH) VITAMIN D 11.5 NG/ML (20.0-100.0)
== END ==
LOC: M LAB REF 14:29
PROVIDERS: ATTEND Physician Assistant Medical
DX: D64.9 Anemia, unspecified (principal)

== ENCOUNTER → 2025-05-16 | Outpatient (REF) | payer OTHER ==
[2025-05-16 18:49] LABS: IRON (FE) 18.0 UG/DL (50-170); PERCENT SATURATION 4.5 % (13.2-45.0)
== END ==
LOC: M LAB REF 17:54
PROVIDERS: ATTEND Physician Assistant Medical
DX: D64.9 Anemia, unspecified (principal)

== ENCOUNTER → 2025-06-21 | Outpatient (REF) | payer OTHER ==
[2025-06-21 19:51] LABS: IRON (FE) 10.0 UG/DL (50-170); PERCENT SATURATION 2.4 % (13.2-45.0)
== END ==
LOC: M LAB REF 17:53
PROVIDERS: ATTEND Physician Assistant Medical
DX: D64.9 Anemia, unspecified (principal)

== ENCOUNTER → 2025-07-26 | Outpatient (REF) | payer OTHER ==
[2025-07-26 18:18] LABS: IRON (FE) 21.0 UG/DL (50-170); PERCENT SATURATION 4.6 % (13.2-45.0)
== END ==
LOC: M LAB REF 17:46
PROVIDERS: ATTEND Nurse Practitioner Family
DX: D50.9 Iron deficiency anemia, unspecified (principal)